=== PATIENT | male | born 1960 | race African-American/Black ===

== ENCOUNTER 2016-08-15 09:53 | Inpatient (IN) | payer OTHER ==
[2016-08-15 10:19] VITALS: BMI 28.1
--- NOTE | 2016-08-15 12:45 | HP ---
CIWA Score - CIWA Score Nausea/Vomitin Muscle Tremors: 3 Anxiety: 3 Agitation: 3 Paroxysmal Sweats: 2 Orientation: 0-Oriented Tacttile Disturbances: 2-Mild Itch/Numbness/Burn Auditory Disturbances: 2-Mild Harshness/Frighten Visual Disturbances: 2-Mild Sensitivity Headache: 2-Mild CIWA-Ar Total Score: 22 Admission ROS BHS - HPI Chief Complaint: i need help to stop drinking alcohol and cociane Allergies/Adverse Reactions: Allergies Allergy/AdvReac Type Severity Reaction Status Date / Time No Known Allergies Allergy Verified 08/15/16 11:11 History of Present Illness: this 56 years old male with alcohol and cocaine dependence,withdrawal symptom, last detox 04/29 [facility] hiv since 1999 weight loss longest period sobriety 3 months Exam Limitations: No Limitations - Ebola screening Have you traveled outside of the country in the last 21 days: No (N) Have you had contact with anyone from an Ebola affected area: No Have you been sick,other than usual withdrawal symptoms: No Do you have a fever: No - Review of Systems Constitutional: Loss of Appetite, Malaise, Night Sweats, Changes in sleep, Weakness, Unexplained wgt Loss EENT: reports: Nose Congestion Respiratory: reports: No Symptoms reported Cardiac: reports: No Symptoms Reported GI: reports: Diarrhea, Nausea, Vomiting, Abdominal cramping : reports: No Symptoms Reported Musculoskeletal: reports: Back Pain, Muscle Pain Integumentary: reports: Dryness Neuro: reports: Headache, Tremors Endocrine: reports: No Symptoms Reported Hematology: reports: Other (hiv) Psychiatric: reports: No Sypmtoms Reported Patient History - Patient Medical History Hx Anemia: No Hx Asthma: No Hx Chronic Obstructive Pulmonary Disease (COPD): No Hx Cancer: No Hx Cardiac Disorders: No Hx Hypertension: No Hx Hypercholesterolemia: No Hx Pacemaker: No HX Cerebrovascular Accident: No Hx Seizures: No Hx Dementia: No Hx Diabetes: No Hx Gastrointestinal Disorders: No Hx Liver Disease: No Hx Genitourinary Disorders: No Hx Sexually Transmitted Disorders: No Hx Renal Disease (ESRD): No Hx Thyroid Disease: No Hx Human Immunodeficiency Virus (HIV): Yes (since 1999) Hx Hepatitis C: No Hx Depression: No Hx Suicide Attempt: No Hx Bipolar Disorder: No Hx Schizophrenia: No Other Medical History: no suicidal,no homicidal - Patient Surgical History Past Surgical History: No Hx Neurologic Surgery: No Hx Cataract Extraction: No Hx Cardiac Surgery: No Hx Lung Surgery: No Hx Breast Surgery: No Hx Breast Biopsy: No Hx Abdominal Surgery: No Hx Appendectomy: No Hx Cholecystectomy: No Hx Genitourinary Surgery: No Hx Section: No Hx Orthopedic Surgery: No Anesthesia Reaction: No - PPD History Previous Implant?: Yes Documented Results: Negative w/o proof Implanted On Prior [facility] Admission?: No PPD to be Administered?: Yes - Smoking Cessation Smoking history: Never smoked Have you smoked in the past 12 months: No Aproximately how many cigarettes per day: 0 Cigars Per Day: 0 Hx Chewing Tobacco Use: No - Substance & Tx. History Hx Alcohol Use: Yes Hx Substance Use: Yes Substance Use Type: Alcohol, Cocaine, Marijuana Hx Substance Use Treatment: Yes ([facility] in 03/29) - Substances Abused Alcohol Route: Oral Frequency: Daily Amount used: 1 pint of Gin Age of first use: 20 Date of Last Use: 08/15/16 Cocaine Route: Inhalation Frequency: 1-3 times last 30 days Amount used: $300 Age of first use: 22 Date of Last Use: 08/13/16 Marijuana/Hashish Route: Smoking Frequency: Daily Amount used: $25 Age of first use: 17 Date of Last Use: 08/12/16 Family Disease History - Family Disease History Family History: Denies Admission Physical Exam [facility] - Vital Signs Vital Signs: Vital Signs - 24 hr 08/15/16 10:16 Temperature 96.2 F L Pulse Rate 82 Respiratory 20 Rate Blood Pressure 147/79 - Physical General Appearance: Yes: Moderate Distress, Tremorous, Irritable, Sweating, Anxious HEENTM: Yes: Nasal Congestion Respiratory: Yes: Lungs Clear Neck: Yes: Within Normal Limits Breast: Yes: Within Normal Limits Cardiology: Yes: Within Normal Limits, Regular Rhythm, Regular Rate, S1, S2 Abdominal: Yes: Within Normal Limits, Normal Bowel Sounds, Non Tender, Flat, Soft Genitourinary: Yes: Within Normal Limits Back: Yes: Muscle Spasm Extremities: Yes: Tremors 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 intact, Fully Oriented, Alert, Motor Strength 5/5 Integumentary: Yes: Dry Lymphatic: Yes: Within Normal Limits - Diagnostic (1) Alcohol dependence with uncomplicated withdrawal Current Visit: Yes Status: Acute (2) Cocaine dependence Current Visit: Yes Status: Acute (3) Cannabis dependence Current Visit: Yes Status: Acute (4) Weight loss Current Visit: Yes Status: Acute (5) HIV (human immunodeficiency virus infection) Current Visit: Yes Status: Acute Cleared for Admission BHS - Detox or Rehab [facility] Level of Care: Medically Managed Detox Regimen/Protocol: Librium BHS Breath Alcohol Content Breath Alcohol Content: 0 Urine Drug Screen - Results Drug Screen Negative: No Urine Drug Screen Results: ORAL-Cocaine
[2016-08-15] MEDS ORDERED: chlordiazePOXIDE HCL 25 MG CAPSULE PO PRN (12:53)
[2016-08-15] MEDS ORDERED: P-EPHED 60MG/TRIPROLIDI 2.5MG TABLET PO PRN (12:53)
[2016-08-15] MEDS ORDERED: IBUPROFEN 400 MG TABLET (FP) PO PRN (12:53)
[2016-08-15] MEDS ORDERED: hydrOXYzine PAMOATE 50 MG CAPSULE (FP) PO PRN (12:53)
[2016-08-15] MEDS ORDERED: diphenhydrAMINE HCL 50 MG CAPSULE PO PRN (12:53)
[2016-08-15] MEDS ORDERED: LOPERAMIDE HCL 2 MG CAPSULE PO PRN (12:53)
[2016-08-15] MEDS ORDERED: ACETAMINOPHEN 325 MG TABLET (FP) PO PRN (12:53)
[2016-08-15] MEDS ORDERED: guaiFENesin/D-METHORPHAN HB 10 ML UNIT-DOSE CUPS PO PRN (12:53)
[2016-08-15] MEDS ORDERED: MAGNESIUM HYDROX 2400MG/30ML ORAL SUSPENSION 30 ML CUP PO PRN (12:53)
[2016-08-15] MEDS ORDERED: MAG HYDROX/AL HYDROX/SIMETH 30 ML UNIT-DOSE CUP PO PRN (12:53)
[2016-08-15] MEDS ORDERED: MENTHOL/PHENOL 1 EACH UD MM PRN (12:53)
[2016-08-15] MEDS ORDERED: MAGNESIUM CITRATE 300 ML BOTTLE PO PRN (12:53)
[2016-08-15] MEDS ORDERED: chlordiazePOXIDE HCL 25 MG CAPSULE PO ONE (13:15)
[2016-08-15] MEDS: chlordiazePOXIDE HCL 25 MG CAPSULE PO SCH ×2 (18:04→22:45)
[2016-08-15] MEDS: THIAMINE HCL 100 MG TABLET (FP) PO SCH (22:45)
[2016-08-15 22:51] LABS: URINE APPEARANCE CLEAR; URINE BILIRUBIN NEGATIVE (NEGATIVE); URINE COLOR LTYELLOW; URINE GLUCOSE (UA) NEGATIVE (NEGATIVE); URINE KETONE NEGATIVE (NEGATIVE); URINE LEUK ESTERASE NEGATIVE (NEGATIVE); URINE NITRITE NEGATIVE (NEGATIVE); URINE PROTEIN NEGATIVE (NEGATIVE); URINE UROBILINOGEN NEGATIVE E.U./dl (0.2-1.0)
[2016-08-15 22:57] LABS: URINE BLOOD 2+ (NEGATIVE)
[2016-08-15 23:03] LABS: URINE MUCUS RARE; URINE RBC <1 /hpf (0-3); URINE WBC 1 /hpf (3-5)
[2016-08-16] MEDS: chlordiazePOXIDE HCL 25 MG CAPSULE PO SCH ×4 (05:33→23:06)
[2016-08-16] MEDS ORDERED: cloNIDine HCL 0.1 MG TABLET PO ONE (07:17)
--- NOTE | 2016-08-16 07:19 | PN ---
BHS Progress Note Note: Last Vital Signs Temp Pulse Resp BP Pulse Ox 97.9 F 78 18 143/90 08/16/16 06:38 08/16/16 06:38 08/16/16 06:38 08/16/16 06:38 BP ELEVATED ONE TIME OF CLONIDINE 0.1MG ORDERED WILL CONTINUE TO MONITOR
[2016-08-16] MEDS: PRENATAL VITAMINS W/ FOLIC ACID TABLET (FP) PO SCH (10:16)
[2016-08-16] MEDS: ASCORBIC ACID 500 MG TABLET (FP) PO SCH (10:18)
--- NOTE | 2016-08-16 10:25 | PN ---
S CIWA - CIWA Score Nausea/Vomitin Muscle Tremors: 3 Anxiety: 3 Agitation: 3 Paroxysmal Sweats: 1-Minimal Palms Moist Orientation: 0-Oriented Tacttile Disturbances: 1-Very Mild Itch/Numbness Auditory Disturbances: 1-Very Mild Visual Disturbances: 1-Very Mild Sensitivity Headache: 2-Mild CIWA-Ar Total Score: 18 BHS Progress Note (SOAP) Subjective: ALERT,IRRITABLE,ANXIOUS,INTERRUPTED SLEEP,TREMOR Objective: 08/16/16 10:23 Vital Signs Temperature 97.9 F 08/16/16 06:38 Pulse Rate 78 08/16/16 06:38 Respiratory Rate 18 08/16/16 06:38 Blood Pressure 143/90 08/16/16 06:38 O2 Sat by Pulse Oximetry (%) EKG NSR NO CHEST PAIN,NO SOB,NO DIZZINESS Laboratory Last Values Urine Color Ltyellow 08/15/16 22:40 Urine Appearance Clear 08/15/16 22:40 Urine pH 5.0 (5.0-8.0) 08/15/16 22:40 Ur Specific [place] 1.019 (1.001-1.035) 08/15/16 22:40 Urine Protein Negative (NEGATIVE) 08/15/16 22:40 Urine Glucose (UA) Negative (NEGATIVE) 08/15/16 22:40 Urine Ketones Negative (NEGATIVE) 08/15/16 22:40 Urine Blood 2+ (NEGATIVE) H 08/15/16 22:40 Urine Nitrite Negative (NEGATIVE) 08/15/16 22:40 Urine Bilirubin Negative (NEGATIVE) 08/15/16 22:40 Urine Urobilinogen Negative E.U./dl (0.2-1.0) 08/15/16 22:40 Ur Leukocyte Esterase Negative (NEGATIVE) 08/15/16 22:40 Urine RBC <1 /hpf (0-3) 08/15/16 22:40 Urine WBC 1 /hpf (3-5) 08/15/16 22:40 Ur Epithelial Cells Rare /hpf (FEW) 08/15/16 22:40 Urine Mucus Rare 08/15/16 22:40 LABS PENDING Assessment: 08/16/16 10:24 WITHDRAWAL SYMPTOM Plan: CONTINUE DETOX
[2016-08-16 11:01] LABS: MCH 31.9 pg (25.7-33.7); MCHC 34.1 g/dl (32.0-35.9); MEAN CELL VOLUME 93.6 fl (80-96); MEAN PLT VOLUME 8.4 fl (7.5-11.1); PLATELET COUNT 227 K/MM3 (134-434); RDW 12.7 % (11.9-15.9); WHITE BLOOD COUNT 3.7 K/mm3 (4.0-10.0)
[2016-08-16 11:12] LABS: CALCIUM 9.1 mg/dL (8.5-10.1)
[2016-08-16 11:18] LABS: ALBUMIN 3.1 g/dl (3.4-5.0); ALK PHOS 67 U/L (45-117); ANION GAP 5 (8-16); BILIRUBIN,TOTAL 0.2 mg/dL (0.2-1.0); CO2 29 mmol/L (21-32); CREATININE 0.9 mg/dL (0.7-1.3); GLUCOSE,RANDOM 96 mg/dL (74-106); SGOT/AST 15 U/L (15-37); SGPT/ALT 24 U/L (12-78); TOT PROT 6.5 g/dl (6.4-8.2)
[2016-08-16] MEDS: THIAMINE HCL 100 MG TABLET (FP) PO SCH (23:06)
[2016-08-17] MEDS: chlordiazePOXIDE HCL 25 MG CAPSULE PO SCH ×2 (07:25→10:12)
--- NOTE | 2016-08-17 10:09 | PN ---
S CIWA - CIWA Score Nausea/Vomitin Muscle Tremors: 3 Anxiety: 2 Agitation: 2 Paroxysmal Sweats: 1-Minimal Palms Moist Orientation: 0-Oriented Tacttile Disturbances: 1-Very Mild Itch/Numbness Auditory Disturbances: 1-Very Mild Visual Disturbances: 1-Very Mild Sensitivity Headache: 2-Mild CIWA-Ar Total Score: 16 S Progress Note (SOAP) Subjective: ALERT,IRRITABLE,ANXIOUS,INTERRUPTED SLEEP,TREMOR Objective: 08/17/16 10:08 Vital Signs Temperature 97.4 F L 08/17/16 09:35 Pulse Rate 98 H 08/17/16 09:35 Respiratory Rate 20 08/17/16 09:35 Blood Pressure 146/91 08/17/16 09:35 O2 Sat by Pulse Oximetry (%) Laboratory Last Values WBC 3.7 K/mm3 (4.0-10.0) L 08/16/16 06:30 RBC 3.79 M/mm3 (4.00-5.60) L 08/16/16 06:30 Hgb 12.1 GM/dL (11.7-16.9) 08/16/16 06:30 Hct 35.4 % (35.4-49) 08/16/16 06:30 MCV 93.6 fl (80-96) 08/16/16 06:30 MCHC 34.1 g/dl (32.0-35.9) 08/16/16 06:30 RDW 12.7 % (11.9-15.9) 08/16/16 06:30 Plt Count 227 K/MM3 (134-434) 08/16/16 06:30 MPV 8.4 fl (7.5-11.1) 08/16/16 06:30 Sodium 143 mmol/L (136-145) 08/16/16 06:30 Potassium 3.7 mmol/L (3.5-5.1) 08/16/16 06:30 Chloride 109 mmol/L (98-107) H 08/16/16 06:30 Carbon Dioxide 29 mmol/L (21-32) 08/16/16 06:30 Anion Gap 5 (8-16) L 08/16/16 06:30 BUN 16 mg/dL (7-18) 08/16/16 06:30 Creatinine 0.9 mg/dL (0.7-1.3) 08/16/16 06:30 Creat Clearance w eGFR > 60 (>60) 08/16/16 06:30 Random Glucose 96 mg/dL (74-106) 08/16/16 06:30 Calcium 9.1 mg/dL (8.5-10.1) 08/16/16 06:30 Total Bilirubin 0.2 mg/dL (0.2-1.0) 08/16/16 06:30 AST 15 U/L (15-37) 08/16/16 06:30 ALT 24 U/L (12-78) 08/16/16 06:30 Alkaline Phosphatase 67 U/L (45-117) 08/16/16 06:30 Total Protein 6.5 g/dl (6.4-8.2) 08/16/16 06:30 Albumin 3.1 g/dl (3.4-5.0) L 08/16/16 06:30 Urine Color Ltyellow 08/15/16 22:40 Urine Appearance Clear 08/15/16 22:40 Urine pH 5.0 (5.0-8.0) 08/15/16 22:40 Ur Specific [place] 1.019 (1.001-1.035) 08/15/16 22:40 Urine Protein Negative (NEGATIVE) 08/15/16 22:40 Urine Glucose (UA) Negative (NEGATIVE) 08/15/16 22:40 Urine Ketones Negative (NEGATIVE) 08/15/16 22:40 Urine Blood 2+ (NEGATIVE) H 08/15/16 22:40 Urine Nitrite Negative (NEGATIVE) 08/15/16 22:40 Urine Bilirubin Negative (NEGATIVE) 08/15/16 22:40 Urine Urobilinogen Negative E.U./dl (0.2-1.0) 08/15/16 22:40 Ur Leukocyte Esterase Negative (NEGATIVE) 08/15/16 22:40 Urine RBC <1 /hpf (0-3) 08/15/16 22:40 Urine WBC 1 /hpf (3-5) 08/15/16 22:40 Ur Epithelial Cells Rare /hpf (FEW) 08/15/16 22:40 Urine Mucus Rare 08/15/16 22:40 RPR Titer Nonreactive (NONREACTIVE) 08/16/16 06:30 Assessment: 08/17/16 10:09 WITHDRAWAL SYMPTOM Plan: CONTINUE DETOX
[2016-08-17] MEDS: PRENATAL VITAMINS W/ FOLIC ACID TABLET (FP) PO SCH (10:12)
[2016-08-17] MEDS: ASCORBIC ACID 500 MG TABLET (FP) PO SCH (10:12)
[2016-08-17] MEDS: AMMONIUM LACTATE 12% LOTION 225 GM BOTTLE TP SCH ×2 (12:11→22:34)
[2016-08-17] MEDS: TOLNAFTATE 1% CREAM 15 GM TUBE TP SCH ×2 (12:11→22:35)
[2016-08-17] MEDS: chlordiazePOXIDE 5 MG CAPSULE PO SCH ×2 (17:20→22:35)
[2016-08-17] MEDS: THIAMINE HCL 100 MG TABLET (FP) PO SCH (22:35)
[2016-08-18] MEDS: chlordiazePOXIDE 5 MG CAPSULE PO SCH ×2 (06:00→10:27)
--- NOTE | 2016-08-18 10:06 | PN ---
BHS Progress Note (SOAP) Subjective: ALERT,INTERRUPTED SLEEP,ANXIOUS Objective: 08/18/16 10:04 Vital Signs Temperature 98.7 F 08/18/16 09:44 Pulse Rate 92 H 08/18/16 09:44 Respiratory Rate 18 08/18/16 09:44 Blood Pressure 132/83 08/18/16 09:44 O2 Sat by Pulse Oximetry (%) Assessment: 08/18/16 10:04 WITHDRAWAL SYMPTOM Plan: CONTINUE DETOX
[2016-08-18] MEDS: TOLNAFTATE 1% CREAM 15 GM TUBE TP SCH ×2 (10:27→22:42)
[2016-08-18] MEDS: PRENATAL VITAMINS W/ FOLIC ACID TABLET (FP) PO SCH (10:27)
[2016-08-18] MEDS: ASCORBIC ACID 500 MG TABLET (FP) PO SCH (10:28)
[2016-08-18] MEDS: AMMONIUM LACTATE 12% LOTION 225 GM BOTTLE TP SCH ×2 (10:28→22:42)
[2016-08-18] MEDS: chlordiazePOXIDE HCL 10 MG CAPSULE PO SCH ×2 (17:21→22:42)
[2016-08-18] MEDS: THIAMINE HCL 100 MG TABLET (FP) PO SCH (22:43)
[2016-08-19] MEDS: chlordiazePOXIDE HCL 10 MG CAPSULE PO SCH ×2 (06:03→10:39)
--- NOTE | 2016-08-19 10:15 | PN ---
S Progress Note (SOAP) Subjective: alert,interrupted sleep,irritable Objective: 08/19/16 10:14 Vital Signs Temperature 96.6 F L 08/19/16 09:53 Pulse Rate 104 H 08/19/16 09:53 Respiratory Rate 20 08/19/16 09:53 Blood Pressure 159/90 08/19/16 09:53 O2 Sat by Pulse Oximetry (%) Assessment: 08/19/16 10:14 withdrawal symptom Plan: continue detox,discharge in am
[2016-08-19] MEDS: AMMONIUM LACTATE 12% LOTION 225 GM BOTTLE TP SCH ×2 (10:39→22:42)
[2016-08-19] MEDS: ASCORBIC ACID 500 MG TABLET (FP) PO SCH (10:39)
[2016-08-19] MEDS: TOLNAFTATE 1% CREAM 15 GM TUBE TP SCH ×2 (10:39→22:42)
[2016-08-19] MEDS: PRENATAL VITAMINS W/ FOLIC ACID TABLET (FP) PO SCH (10:39)
[2016-08-19] MEDS: THIAMINE HCL 100 MG TABLET (FP) PO SCH (22:43)
[2016-08-20 06:25] VITALS: BP 145/94; PULSE 87; TEMP 98.1
--- NOTE | 2016-08-20 10:59 | DS ---
[facility] Detox Discharge Summary Admission Date: 08/15/16 Discharge Date: 08/20/16 - History Present History: Alcohol Dependence, Cannabis Dependence, Cocaine Dependence Pertinent Past History: HIV - Physical Exam Results Vital Signs: Vital Signs Temperature 98.1 F 08/20/16 06:25 Pulse Rate 87 08/20/16 06:25 Respiratory Rate 16 08/20/16 06:25 Blood Pressure 145/94 08/20/16 06:25 O2 Sat by Pulse Oximetry (%) Pertinent Admission Physical Exam Findings: withdrawal symptoms Laboratory Last Values WBC 3.7 K/mm3 (4.0-10.0) L 08/16/16 06:30 RBC 3.79 M/mm3 (4.00-5.60) L 08/16/16 06:30 Hgb 12.1 GM/dL (11.7-16.9) 08/16/16 06:30 Hct 35.4 % (35.4-49) 08/16/16 06:30 MCV 93.6 fl (80-96) 08/16/16 06:30 MCHC 34.1 g/dl (32.0-35.9) 08/16/16 06:30 RDW 12.7 % (11.9-15.9) 08/16/16 06:30 Plt Count 227 K/MM3 (134-434) 08/16/16 06:30 MPV 8.4 fl (7.5-11.1) 08/16/16 06:30 Sodium 143 mmol/L (136-145) 08/16/16 06:30 Potassium 3.7 mmol/L (3.5-5.1) 08/16/16 06:30 Chloride 109 mmol/L (98-107) H 08/16/16 06:30 Carbon Dioxide 29 mmol/L (21-32) 08/16/16 06:30 Anion Gap 5 (8-16) L 08/16/16 06:30 BUN 16 mg/dL (7-18) 08/16/16 06:30 Creatinine 0.9 mg/dL (0.7-1.3) 08/16/16 06:30 Creat Clearance w eGFR > 60 (>60) 08/16/16 06:30 Random Glucose 96 mg/dL (74-106) 08/16/16 06:30 Calcium 9.1 mg/dL (8.5-10.1) 08/16/16 06:30 Total Bilirubin 0.2 mg/dL (0.2-1.0) 08/16/16 06:30 AST 15 U/L (15-37) 08/16/16 06:30 ALT 24 U/L (12-78) 08/16/16 06:30 Alkaline Phosphatase 67 U/L (45-117) 08/16/16 06:30 Total Protein 6.5 g/dl (6.4-8.2) 08/16/16 06:30 Albumin 3.1 g/dl (3.4-5.0) L 08/16/16 06:30 Urine Color Ltyellow 08/15/16 22:40 Urine Appearance Clear 08/15/16 22:40 Urine pH 5.0 (5.0-8.0) 08/15/16 22:40 Ur Specific [place] 1.019 (1.001-1.035) 08/15/16 22:40 Urine Protein Negative (NEGATIVE) 08/15/16 22:40 Urine Glucose (UA) Negative (NEGATIVE) 08/15/16 22:40 Urine Ketones Negative (NEGATIVE) 08/15/16 22:40 Urine Blood 2+ (NEGATIVE) H 08/15/16 22:40 Urine Nitrite Negative (NEGATIVE) 08/15/16 22:40 Urine Bilirubin Negative (NEGATIVE) 08/15/16 22:40 Urine Urobilinogen Negative E.U./dl (0.2-1.0) 08/15/16 22:40 Ur Leukocyte Esterase Negative (NEGATIVE) 08/15/16 22:40 Urine RBC <1 /hpf (0-3) 08/15/16 22:40 Urine WBC 1 /hpf (3-5) 08/15/16 22:40 Ur Epithelial Cells Rare /hpf (FEW) 08/15/16 22:40 Urine Mucus Rare 08/15/16 22:40 RPR Titer Nonreactive (NONREACTIVE) 08/16/16 06:30 labs noted - Medication Discharge Medications: Ambulatory Orders NK [No Known Home Medication] 08/15/16 - Diagnosis (1) Alcohol dependence with uncomplicated withdrawal Status: Acute (2) Cannabis dependence Status: Acute (3) Cocaine dependence Status: Acute Qualifiers: Substance use status: uncomplicated Qualified Code(s): F14.20 - Cocaine dependence, uncomplicated (4) HIV (human immunodeficiency virus infection) Status: Chronic (5) Weight loss Status: Acute - AMA Did Patient Leave Against Medical Advice: No
== END 2016-08-20 09:20 | disposition home or self-care (01) | DRG 897 ==
LOC: YASAS 09:53 → Y3N 12:15
PROVIDERS: ADMIT Internal Medicine; ATTEND Internal Medicine
PROC: HZ2ZZZZ Detoxification Services for Substance Abuse Treatment (ICD-10-PCS; principal; 2016-08-15)
DX: F10.230 Alcohol dependence with withdrawal, uncomplicated (principal); F14.20 Cocaine dependence, uncomplicated; F12.20 Cannabis dependence, uncomplicated; R03.0 Elevated blood-pressure reading, without diagnosis of hypertension; Z21 Asymptomatic human immunodeficiency virus [HIV] infection status; Z87.898 Personal history of other specified conditions
CPT/HCPCS: 36415; 80053; 81003; 81015; 85027; 86593; 93005; 93010

== ENCOUNTER 2017-05-29 13:48 | Inpatient (IN) | payer OTHER ==
[2017-05-29 16:20] VITALS: BMI 26.4
--- NOTE | 2017-05-29 18:52 | HP ---
CIWA Score - CIWA Score Nausea/Vomitin-Mild Nausea/No Vomiting Muscle Tremors: 4-Moderate,w/Arms Extend Anxiety: 4-Mod. Anxious/Guarded Agitation: 4-Moderately Restless Paroxysmal Sweats: 1-Minimal Palms Moist Orientation: 1-Uncertain about Date Tacttile Disturbances: 0-None Auditory Disturbances: 0-None Visual Disturbances: 0-None Headache: 0-None Present CIWA-Ar Total Score: 15 Admission ROS BHS - HPI Chief Complaint: WITHDRAWAL SX Allergies/Adverse Reactions: Allergies Allergy/AdvReac Type Severity Reaction Status Date / Time No Known Allergies Allergy Verified 05/29/17 18:01 History of Present Illness: 57 YEARS OLD MALE WITH LONG HISTORY OF ALCOHOL COCAINE DEPENDENCE HAS HIV, PATIENT DOES NOT BRING HIS MEDICATION, DENIES MENTAL ILLNESS IS ADMITTED TO DETOX Exam Limitations: No Limitations - Ebola screening Have you traveled outside of the country in the last 21 days: No Have you had contact with anyone from an Ebola affected area: No Have you been sick,other than usual withdrawal symptoms: No Do you have a fever: No - Review of Systems Constitutional: Changes in sleep, Weight Stable EENT: reports: No Symptoms Reported Respiratory: reports: No Symptoms reported Cardiac: reports: No Symptoms Reported GI: reports: Nausea, Poor Fluid Intake, Abdominal cramping : reports: No Symptoms Reported Musculoskeletal: reports: Muscle Pain (UPPER TORSAL MUSCLE ACHE) Integumentary: reports: No Symptoms Reported Neuro: reports: Tremors Endocrine: reports: No Symptoms Reported Hematology: reports: No Symptoms Reported Psychiatric: reports: Judgement Intact, Mood/Affect Appropiate Other Systems: Reviewed and Negative Patient History - Patient Medical History Hx Anemia: No Hx Asthma: No Hx Chronic Obstructive Pulmonary Disease (COPD): No Hx Cancer: No Hx Cardiac Disorders: No Hx Congestive Heart Failure: No Hx Hypertension: No Hx Hypercholesterolemia: No Hx Pacemaker: No HX Cerebrovascular Accident: No Hx Seizures: No Hx Dementia: No Hx Diabetes: No Hx Gastrointestinal Disorders: No Hx Liver Disease: No Hx Genitourinary Disorders: No Hx Sexually Transmitted Disorders: No Hx Renal Disease (ESRD): No Hx Thyroid Disease: No Hx Human Immunodeficiency Virus (HIV): Yes (since 1999) Hx Hepatitis C: No Hx Depression: No Hx Suicide Attempt: No Hx Bipolar Disorder: No Hx Schizophrenia: No - Patient Surgical History Past Surgical History: No Hx Neurologic Surgery: No Hx Cataract Extraction: No Hx Cardiac Surgery: No Hx Lung Surgery: No Hx Breast Surgery: No Hx Breast Biopsy: No Hx Abdominal Surgery: No Hx Appendectomy: No Hx Cholecystectomy: No Hx Genitourinary Surgery: No Hx Orthopedic Surgery: No - PPD History Previous Implant?: Yes Documented Results: Negative w/proof Implanted On Prior [facility] Admission?: Yes Date: 08/17/16 Results: 0 mm PPD to be Administered?: No - Smoking Cessation Smoking history: Never smoked Have you smoked in the past 12 months: No Aproximately how many cigarettes per day: 0 Cigars Per Day: 0 Hx Chewing Tobacco Use: No Initiated information on smoking cessation: No - Substance & Tx. History Hx Alcohol Use: Yes Hx Substance Use: Yes Substance Use Type: Alcohol, Cocaine Hx Substance Use Treatment: Yes (08/15-08/20/16 [facility] - Substances Abused Alcohol Route: Oral Frequency: Daily Amount used: 1 [address] Age of first use: 22 Date of Last Use: 05/29/17 Cocaine Route: Smoking Frequency: Daily Amount used: $200 Age of first use: 20 Date of Last Use: 05/27/17 Family Disease History - Family Disease History Family Disease History: Other: Father (), Mother (), Brother ( NO CONTACT), Sister (NO CONTACT) Admission Physical Exam S - Vital Signs Vital Signs: Vital Signs - 24 hr 05/29/17 16:18 Temperature 96 F L Pulse Rate 71 Respiratory 20 Rate Blood Pressure 149/88 - Physical General Appearance: Yes: Nourished, Appropriately Dressed, Mild Distress, Tremorous, Irritable, Sweating, Anxious HEENTM: Yes: Hearing grossly Normal, Normal ENT Inspection, Normocephalic, Normal Voice Respiratory: Yes: Chest Non-Tender, Lungs Clear, Normal Breath Sounds, No Respiratory Distress, No Accessory Muscle Use Neck: Yes: Supple, Trachea in good position Breast: Yes: Breasts Symetrical Cardiology: Yes: Regular Rhythm, Regular Rate, S1, S2 Abdominal: Yes: Non Tender, Soft, Increased Bowel Sounds Genitourinary: Yes: Within Normal Limits Back: Yes: Normal Inspection Musculoskeletal: Yes: full range of Motion, Gait Steady Extremities: Yes: Normal Inspection, Normal Range of Motion, Non-Tender, Tremors Neurological: Yes: Alert, Motor Strength 5/5, Normal Mood/Affect, Normal Response Integumentary: Yes: Warm Lymphatic: Yes: Within Normal Limits - Diagnostic (1) Alcohol dependence with uncomplicated withdrawal Current Visit: Yes Status: Acute (2) Weight loss Status: Acute (3) HIV (human immunodeficiency virus infection) Current Visit: Yes Status: Chronic Comment: JANA Cleared for Admission S - Detox or Rehab [facility] Level of Care: Medically Managed Detox Regimen/Protocol: Librium S Breath Alcohol Content Breath Alcohol Content: 0 Urine Drug Screen - Results Drug Screen Negative: No Urine Drug Screen Results: ORAL-Cocaine
[2017-05-29] MEDS ORDERED: MAGNESIUM CITRATE 300 ML BOTTLE PO PRN (19:13)
[2017-05-29] MEDS ORDERED: MAG HYDROX/AL HYDROX/SIMETH 30 ML UNIT-DOSE CUP PO PRN (19:13)
[2017-05-29] MEDS ORDERED: MAGNESIUM HYDROX 2400MG/30ML ORAL SUSPENSION 30 ML CUP PO PRN (19:13)
[2017-05-29] MEDS ORDERED: IBUPROFEN 400 MG TABLET (FP) PO PRN (19:13)
[2017-05-29] MEDS ORDERED: MENTHOL/PHENOL 1 EACH UD MM PRN (19:13)
[2017-05-29] MEDS ORDERED: ACETAMINOPHEN 325 MG TABLET (FP) PO PRN (19:13)
[2017-05-29] MEDS ORDERED: LOPERAMIDE HCL 2 MG CAPSULE PO PRN (19:13)
[2017-05-29] MEDS ORDERED: guaiFENesin/D-METHORPHAN HB 10 ML UNIT-DOSE CUPS PO PRN (19:13)
[2017-05-29] MEDS ORDERED: P-EPHED 60MG/TRIPROLIDI 2.5MG TABLET PO PRN (19:13)
[2017-05-29] MEDS: chlordiazePOXIDE HCL 25 MG CAPSULE PO PRN (20:41)
[2017-05-29] MEDS: SULFAMETHOXAZOLE/TRIMETHOPRIM 800MG/160MG D.S. TABLET PO SCH (20:41)
[2017-05-29] MEDS ORDERED: chlordiazePOXIDE HCL 25 MG CAPSULE ONE (21:00)
[2017-05-29] MEDS: THIAMINE HCL 100 MG TABLET (FP) PO SCH (22:16)
[2017-05-29] MEDS: chlordiazePOXIDE HCL 25 MG CAPSULE PO SCH (22:17)
[2017-05-30 01:07] LABS: URINE APPEARANCE CLEAR; URINE BILIRUBIN NEGATIVE (NEGATIVE); URINE BLOOD NEGATIVE (NEGATIVE); URINE COLOR STRAW; URINE GLUCOSE (UA) NEGATIVE (NEGATIVE); URINE KETONE NEGATIVE (NEGATIVE); URINE NITRITE NEGATIVE (NEGATIVE); URINE PROTEIN NEGATIVE (NEGATIVE); URINE UROBILINOGEN NEGATIVE mg/dL (0.2-1.0)
[2017-05-30] MEDS: chlordiazePOXIDE HCL 25 MG CAPSULE PO SCH ×4 (05:25→22:38)
[2017-05-30 09:11] LABS: URINE LEUK ESTERASE Negative (NEGATIVE)
[2017-05-30 09:50] LABS: MCH 29.8 pg (25.7-33.7); MCHC 33.5 g/dl (32.0-35.9); MEAN PLT VOLUME 8.5 fl (7.5-11.1); PLATELET COUNT 246 K/MM3 (134-434); WHITE BLOOD COUNT 2.8 K/mm3 (4.0-10.0)
[2017-05-30] MEDS: SULFAMETHOXAZOLE/TRIMETHOPRIM 800MG/160MG D.S. TABLET PO SCH (10:20)
[2017-05-30] MEDS: PRENATAL VITAMINS W/ FOLIC ACID TABLET (FP) PO SCH (10:20)
--- NOTE | 2017-05-30 10:41 | PN ---
S CIWA - CIWA Score Nausea/Vomitin Muscle Tremors: 3 Anxiety: 2 Agitation: 3 Paroxysmal Sweats: 1-Minimal Palms Moist Orientation: 0-Oriented Tacttile Disturbances: 1-Very Mild Itch/Numbness Auditory Disturbances: 1-Very Mild Visual Disturbances: 0-None Headache: 2-Mild CIWA-Ar Total Score: 16 BHS Progress Note (SOAP) Subjective: alert,irritable,anxious,interrupted sleep,tremor Objective: 05/30/17 10:39 Vital Signs Temperature 95.6 F L 05/30/17 10:00 Pulse Rate 84 05/30/17 10:00 Respiratory Rate 18 05/30/17 10:00 Blood Pressure 151/82 05/30/17 10:00 O2 Sat by Pulse Oximetry (%) ekg nsr,normal ecg Laboratory Last Values WBC 2.8 K/mm3 (4.0-10.0) L 05/30/17 07:00 RBC 4.20 M/mm3 (4.00-5.60) 05/30/17 07:00 Hgb 12.6 GM/dL (11.7-16.9) 05/30/17 07:00 Hct 37.4 % (35.4-49) 05/30/17 07:00 MCV 89.0 fl (80-96) 05/30/17 07:00 MCH 29.8 pg (25.7-33.7) 05/30/17 07:00 MCHC 33.5 g/dl (32.0-35.9) 05/30/17 07:00 RDW 14.0 % (11.9-15.9) D 05/30/17 07:00 Plt Count 246 K/MM3 (134-434) 05/30/17 07:00 MPV 8.5 fl (7.5-11.1) 05/30/17 07:00 Urine Color Straw 05/29/17 22:35 Urine Appearance Clear 05/29/17 22:35 Urine pH 5.0 (5.0-8.0) 05/29/17 22:35 Ur Specific [place] 1.010 (1.005-1.025) 05/29/17 22:35 Urine Protein Negative (NEGATIVE) 05/29/17 22:35 Urine Glucose (UA) Negative (NEGATIVE) 05/29/17 22:35 Urine Ketones Negative (NEGATIVE) 05/29/17 22:35 Urine Blood Negative (NEGATIVE) 05/29/17 22:35 Urine Nitrite Negative (NEGATIVE) 05/29/17 22:35 Urine Bilirubin Negative (NEGATIVE) 05/29/17 22:35 Urine Urobilinogen Negative mg/dL (0.2-1.0) 05/29/17 22:35 Ur Leukocyte Esterase Negative (NEGATIVE) 05/29/17 22:35 RPR Titer Nonreactive (NONREACTIVE) 05/30/17 07:00 labs pending Assessment: 05/30/17 10:40 withdrawal symptom Plan: continue detox
[2017-05-30 10:45] LABS: ALBUMIN 3.1 g/dl (3.4-5.0); ALK PHOS 77 U/L (45-117); ANION GAP 8 (8-16); BILIRUBIN,TOTAL 0.4 mg/dL (0.2-1.0); CO2 29 mmol/L (21-32); CREATININE 1.1 mg/dL (0.7-1.3); GLUCOSE,RANDOM 81 mg/dL (74-106); SGOT/AST 16 U/L (15-37); SGPT/ALT 21 U/L (12-78); TOT PROT 6.9 g/dl (6.4-8.2)
[2017-05-30] MEDS ORDERED: FLU VACCINE QUAD 60 MCG/0.5 ML (MDV 17-18) IM ONE (12:00)
[2017-05-30] MEDS: chlordiazePOXIDE HCL 25 MG CAPSULE PO PRN (19:10)
[2017-05-30] MEDS: THIAMINE HCL 100 MG TABLET (FP) PO SCH (22:37)
[2017-05-30] MEDS: diphenhydrAMINE HCL 50 MG CAPSULE PO PRN (22:38)
[2017-05-31] MEDS: chlordiazePOXIDE HCL 25 MG CAPSULE PO SCH ×3 (05:50→17:26)
[2017-05-31] MEDS: SULFAMETHOXAZOLE/TRIMETHOPRIM 800MG/160MG D.S. TABLET PO SCH (10:35)
[2017-05-31] MEDS: PRENATAL VITAMINS W/ FOLIC ACID TABLET (FP) PO SCH (10:35)
--- NOTE | 2017-05-31 11:14 | PN ---
S CIWA - CIWA Score Nausea/Vomitin Muscle Tremors: 3 Anxiety: 3 Agitation: 2 Paroxysmal Sweats: 1-Minimal Palms Moist Orientation: 0-Oriented Tacttile Disturbances: 1-Very Mild Itch/Numbness Auditory Disturbances: 1-Very Mild Visual Disturbances: 0-None Headache: 2-Mild CIWA-Ar Total Score: 16 BHS Progress Note (SOAP) Subjective: alert,irritable,tremor,interrupted sleep Objective: 05/31/17 11:11 Vital Signs Temperature 98.6 F 05/31/17 10:00 Pulse Rate 90 05/31/17 10:00 Respiratory Rate 20 05/31/17 10:00 Blood Pressure 141/92 05/31/17 10:00 O2 Sat by Pulse Oximetry (%) Laboratory Last Values WBC 2.8 K/mm3 (4.0-10.0) L 05/30/17 07:00 RBC 4.20 M/mm3 (4.00-5.60) 05/30/17 07:00 Hgb 12.6 GM/dL (11.7-16.9) 05/30/17 07:00 Hct 37.4 % (35.4-49) 05/30/17 07:00 MCV 89.0 fl (80-96) 05/30/17 07:00 MCH 29.8 pg (25.7-33.7) 05/30/17 07:00 MCHC 33.5 g/dl (32.0-35.9) 05/30/17 07:00 RDW 14.0 % (11.9-15.9) D 05/30/17 07:00 Plt Count 246 K/MM3 (134-434) 05/30/17 07:00 MPV 8.5 fl (7.5-11.1) 05/30/17 07:00 Sodium 143 mmol/L (136-145) 05/30/17 07:00 Potassium 4.0 mmol/L (3.5-5.1) 05/30/17 07:00 Chloride 106 mmol/L (98-107) 05/30/17 07:00 Carbon Dioxide 29 mmol/L (21-32) 05/30/17 07:00 Anion Gap 8 (8-16) 05/30/17 07:00 BUN 16 mg/dL (7-18) 05/30/17 07:00 Creatinine 1.1 mg/dL (0.7-1.3) D 05/30/17 07:00 Creat Clearance w eGFR > 60 (>60) 05/30/17 07:00 Random Glucose 81 mg/dL (74-106) 05/30/17 07:00 Calcium 9.0 mg/dL (8.5-10.1) 05/30/17 07:00 Total Bilirubin 0.4 mg/dL (0.2-1.0) D 05/30/17 07:00 AST 16 U/L (15-37) 05/30/17 07:00 ALT 21 U/L (12-78) 05/30/17 07:00 Alkaline Phosphatase 77 U/L (45-117) 05/30/17 07:00 Total Protein 6.9 g/dl (6.4-8.2) 05/30/17 07:00 Albumin 3.1 g/dl (3.4-5.0) L 05/30/17 07:00 Urine Color Straw 05/29/17 22:35 Urine Appearance Clear 05/29/17 22:35 Urine pH 5.0 (5.0-8.0) 05/29/17 22:35 Ur Specific [place] 1.010 (1.005-1.025) 05/29/17 22:35 Urine Protein Negative (NEGATIVE) 05/29/17 22:35 Urine Glucose (UA) Negative (NEGATIVE) 05/29/17 22:35 Urine Ketones Negative (NEGATIVE) 05/29/17 22:35 Urine Blood Negative (NEGATIVE) 05/29/17 22:35 Urine Nitrite Negative (NEGATIVE) 05/29/17 22:35 Urine Bilirubin Negative (NEGATIVE) 05/29/17 22:35 Urine Urobilinogen Negative mg/dL (0.2-1.0) 05/29/17 22:35 Ur Leukocyte Esterase Negative (NEGATIVE) 05/29/17 22:35 RPR Titer Nonreactive (NONREACTIVE) 05/30/17 07:00 Hepatitis C Antibody 0.1 s/co ratio (0.0-0.9) 05/29/17 07:00 Assessment: 05/31/17 11:13 withdrawal symptom Plan: continue detox
--- NOTE | 2017-05-31 12:00 | EKG ---
Test Reason : Blood Pressure : / mmHG Vent. Rate : 065 BPM Atrial Rate : 065 BPM P-R Int : 158 ms QRS Dur : 090 ms QT Int : 408 ms P-R-T Axes : 028 045 023 degrees QTc Int : 424 ms NORMAL SINUS RHYTHM NORMAL ECG NO PREVIOUS ECGS AVAILABLE Confirmed by ALLISON NIELSEN, TANYA ([id number]) on 05/31/2017 11:59:34 AM Referred By: GABRIELA APONTE Confirmed By:TANYA COOPER MD
[2017-05-31] MEDS: chlordiazePOXIDE 5 MG CAPSULE PO SCH (22:19)
[2017-05-31] MEDS: THIAMINE HCL 100 MG TABLET (FP) PO SCH (22:19)
[2017-05-31] MEDS: diphenhydrAMINE HCL 50 MG CAPSULE PO PRN (22:21)
[2017-06-01] MEDS: chlordiazePOXIDE 5 MG CAPSULE PO SCH ×3 (05:19→17:41)
--- NOTE | 2017-06-01 10:14 | PN ---
[facility] Progress Note (SOAP) Subjective: alert,irritable,anxious,interrupted sleep Objective: 06/01/17 10:13 Vital Signs Temperature 99.9 F H 06/01/17 09:47 Pulse Rate 88 06/01/17 09:47 Respiratory Rate 18 06/01/17 09:47 Blood Pressure 133/90 06/01/17 09:47 O2 Sat by Pulse Oximetry (%) Assessment: 06/01/17 10:13 withdrawal symptom 06/01/17 10:14 Plan: continue detox,discharge in am
[2017-06-01 10:42] LABS: MCH 29.6 pg (25.7-33.7); MCHC 33.4 g/dl (32.0-35.9); MEAN CELL VOLUME 88.7 fl (80-96); MEAN PLT VOLUME 8.5 fl (7.5-11.1); PLATELET COUNT 241 K/MM3 (134-434); RDW 14.3 % (11.9-15.9); WHITE BLOOD COUNT 3.4 K/mm3 (4.0-10.0)
[2017-06-01] MEDS: PRENATAL VITAMINS W/ FOLIC ACID TABLET (FP) PO SCH (10:48)
[2017-06-01] MEDS: SULFAMETHOXAZOLE/TRIMETHOPRIM 800MG/160MG D.S. TABLET PO SCH (10:48)
[2017-06-01] MEDS: THIAMINE HCL 100 MG TABLET (FP) PO SCH (22:19)
[2017-06-01] MEDS: chlordiazePOXIDE HCL 10 MG CAPSULE PO SCH (22:19)
[2017-06-01] MEDS: diphenhydrAMINE HCL 50 MG CAPSULE PO PRN (22:19)
[2017-06-02] MEDS: chlordiazePOXIDE HCL 10 MG CAPSULE PO SCH ×2 (06:01→10:33)
--- NOTE | 2017-06-02 08:19 | DS ---
[facility] Detox Discharge Summary Admission Date: 05/29/17 Discharge Date: 06/02/17 - History Present History: Alcohol Dependence, Cocaine Dependence Additional Comments: follow up with after care program as arrangement Pertinent Past History: hiv weight loss - Physical Exam Results Vital Signs: Vital Signs Temperature 97 F L 06/02/17 06:30 Pulse Rate 71 06/02/17 06:30 Respiratory Rate 18 06/02/17 06:30 Blood Pressure 133/76 06/02/17 06:30 O2 Sat by Pulse Oximetry (%) Pertinent Admission Physical Exam Findings: withdrawal symptom - Treatment Hospital Course: Detox Protocol Followed, Detoxed Safely, Responded well, Discharged Condition Good, Rehab Referral Accepted Patient [facility] - Medication Discharge Medications: Ambulatory Orders Abacavir/Dolutegravir/Lamivudi [Triumeq Tablet] 1 each PO DAILY 05/29/17 Sulfamethoxazole/Trimethoprim [Bactrim Ds -] 1 tab PO DAILY 05/29/17 - Diagnosis (1) Alcohol dependence with uncomplicated withdrawal Current Visit: Yes Status: Acute (2) HIV (human immunodeficiency virus infection) Current Visit: Yes Status: Chronic (3) Weight loss Current Visit: No Status: Acute - AMA Did Patient Leave Against Medical Advice: No
[2017-06-02 09:45] VITALS: BP 143/89; PULSE 88; TEMP 97.9
[2017-06-02] MEDS: PRENATAL VITAMINS W/ FOLIC ACID TABLET (FP) PO SCH (10:33)
[2017-06-02] MEDS: SULFAMETHOXAZOLE/TRIMETHOPRIM 800MG/160MG D.S. TABLET PO SCH (10:33)
== END 2017-06-02 13:42 | disposition other institution (70) | DRG 897 ==
LOC: YASAS 13:48 → Y6N 19:08
PROVIDERS: ADMIT Internal Medicine; ATTEND Internal Medicine
PROC: HZ2ZZZZ Detoxification Services for Substance Abuse Treatment (ICD-10-PCS; principal; 2017-05-29)
DX: F10.230 Alcohol dependence with withdrawal, uncomplicated (principal); Z21 Asymptomatic human immunodeficiency virus [HIV] infection status; R63.4 Abnormal weight loss; Z68.26 Body mass index [BMI] 26.0-26.9, adult
CPT/HCPCS: 36415; 80053; 81003; 85027; 86593; 86803; 90688; 93005; 93010; G0008

== ENCOUNTER 2017-06-02 13:52 | Inpatient (IN) | payer OTHER ==
--- NOTE | 2017-06-02 14:31 | HP ---
Psychiatrist Admission - Data Date of interview: 06/02/17 Admission source: 6N Identifying data: This is the second [facility] for this 57 years old single Black male, unemployed on food stamp, domiciled Medical History: Significant for HIV+ since 1999 Psychiatric History: Denies history of previous psychiatric treatment Physical/Sexual Abuse/Trauma History: Denies history of verbal, physical or sexual abuse as well as DV relationship. No service Additional Comment: Reports history of 4-5 previous misdemeanor arrests. No probation at present Allergies/Adverse Reactions: Allergies Allergy/AdvReac Type Severity Reaction Status Date / Time No Known Allergies Allergy Verified 05/29/17 18:01 Date of last physical exam: 05/29/17 Concur with the findings of this exam: Yes - Substance Abuse/Tx History Hx Alcohol Use: Yes Hx Substance Use: Yes Substance Use Type: Alcohol (Started drinking alcohol at age 22, consumes one pint of mile daily. Last drank on 05/29/17), Cocaine (Started smoking crack cocaine at age 20, consumes $200 worth daily. Last smoked on 05/27/17) Hx Substance Use Treatment: Yes (2 previous inpt detox & one inpt rehab admissions @ [facility]) Mental Status Exam - Mental Status Exam Alert and Oriented to: Time, Place, Person Cognitive Function: Fair Patient Appearance: Well Groomed Mood: Anxious Affect: Appropriate Patient Behavior: Cooperative Speech Pattern: Clear Voice Loudness: Normal Thought Process: Intact, Goal Oriented Thought Disorder: Not Present Hallucinations: Denies Suicidal Ideation: Denies Homicidal Ideation: Denies Insight/Judgement: Fair Sleep: Poorly Appetite: Good Muscle strength/Tone: Normal Gait/Station: Normal Psychiatric Findings - Problem List ([place] 1, 2,3) (1) Alcohol dependence Current Visit: Yes Status: Acute (2) Cocaine dependence Current Visit: No Status: Acute Qualifiers: (3) Cannabis dependence Current Visit: No Status: Acute (4) Substance-induced anxiety disorder Current Visit: Yes Status: Acute (5) Substance-induced sleep disorder Current Visit: Yes Status: Acute - Initial Treatment Plan Initial Treatment Plan: Monitor progress
[2017-06-02] MEDS ORDERED: IBUPROFEN 400 MG TABLET (FP) PO PRN (15:28)
[2017-06-02] MEDS ORDERED: LOPERAMIDE HCL 2 MG CAPSULE PO PRN (15:28)
[2017-06-02] MEDS ORDERED: MAGNESIUM HYDROX 2400MG/30ML ORAL SUSPENSION 30 ML CUP PO PRN (15:28)
[2017-06-02] MEDS ORDERED: hydrOXYzine PAMOATE 50 MG CAPSULE (FP) PO PRN (15:28)
[2017-06-02] MEDS ORDERED: ACETAMINOPHEN 325 MG TABLET (FP) PO PRN (15:28)
[2017-06-02] MEDS ORDERED: MAG HYDROX/AL HYDROX/SIMETH 30 ML UNIT-DOSE CUP PO PRN (15:28)
[2017-06-02] MEDS ORDERED: MAGNESIUM CITRATE 300 ML BOTTLE PO PRN (15:28)
[2017-06-02] MEDS ORDERED: MENTHOL/PHENOL 1 EACH UD MM PRN (15:28)
[2017-06-02] MEDS ORDERED: guaiFENesin/D-METHORPHAN HB 10 ML UNIT-DOSE CUPS PO PRN (15:28)
[2017-06-02] MEDS ORDERED: P-EPHED 60MG/TRIPROLIDI 2.5MG TABLET PO PRN (15:28)
--- NOTE | 2017-06-02 15:36 | HP ---
[facility] Rehab Assess/Revision - Admission History Admitted to Rehab from: [facility] [place] Date of Admission to Rehab: 06/02/17 - Findings Detox History & Physical reviewed: Yes Concur with findings: Yes Comments/Additional Findings: FOR REHAB PROTOCOL
--- NOTE | 2017-06-02 15:37 | HP ---
Admission ROS [facility] Allergies/Adverse Reactions: Allergies Allergy/AdvReac Type Severity Reaction Status Date / Time No Known Allergies Allergy Verified 05/29/17 18:01 - Ebola screening Have you traveled outside of the country in the last 21 days: No Have you had contact with anyone from an Ebola affected area: No Do you have a fever: No Patient History - Patient Medical History Hx Anemia: No Hx Asthma: No Hx Chronic Obstructive Pulmonary Disease (COPD): No Hx Cancer: No Hx Cardiac Disorders: No Hx Congestive Heart Failure: No Hx Hypertension: No Hx Hypercholesterolemia: No Hx Pacemaker: No HX Cerebrovascular Accident: No Hx Seizures: No Hx Dementia: No Hx Diabetes: No Hx Gastrointestinal Disorders: No Hx Liver Disease: No Hx Genitourinary Disorders: No Hx Sexually Transmitted Disorders: No Hx Renal Disease (ESRD): No Hx Thyroid Disease: No Hx Human Immunodeficiency Virus (HIV): Yes (since 1999) Hx Hepatitis C: No Hx Depression: No Hx Suicide Attempt: No Hx Bipolar Disorder: No Hx Schizophrenia: No - Patient Surgical History Past Surgical History: No Hx Neurologic Surgery: No Hx Cataract Extraction: No Hx Cardiac Surgery: No Hx Lung Surgery: No Hx Breast Surgery: No Hx Breast Biopsy: No Hx Abdominal Surgery: No Hx Appendectomy: No Hx Cholecystectomy: No Hx Genitourinary Surgery: No Hx Section: No Hx Orthopedic Surgery: No Anesthesia Reaction: No - PPD History Previous Implant?: Yes Documented Results: Negative w/o proof Date: 08/17/16 Results: 0 mm - Reproductive History Patient : No - Smoking Cessation Smoking history: Never smoked Have you smoked in the past 12 months: No Aproximately how many cigarettes per day: 0 Cigars Per Day: 0 Hx Chewing Tobacco Use: No - Substances Abused Alcohol Route: Oral Frequency: Daily Amount used: 1 PINT OF GERRY Age of first use: 22 Date of Last Use: 05/29/17 Cocaine Route: Smoking Frequency: 1-2 times per week Amount used: $200 Age of first use: 20 Date of Last Use: 05/27/17 Family Disease History - Family Disease History Family Disease History: Other: Father (), Mother (), Brother ( NO CONTACT), Sister (NO CONTACT) [facility]HS Breath Alcohol Content Breath Alcohol Content: 0 Inpatient Rehab Admission - Initial Determination Are CD services needed?: Yes Free of communicable disease: Yes Not in need of hospitalization: Yes - Rehab Admission Criteria Previous failed treatment: Yes Poor recovery environment: Yes Comorbidities: Yes Patient is meeting Inpatient Rehab admission criteria:: Yes
[2017-06-02] MEDS: ABACAVIR/DOLUTEGRAVIR/LAMIVUDI (TRIUMEQ) TABLET -NF PO SCH (17:05)
[2017-06-02] MEDS: diphenhydrAMINE HCL 50 MG CAPSULE PO PRN (21:46)
[2017-06-02] MEDS: THIAMINE HCL 100 MG TABLET (FP) PO SCH (21:46)
[2017-06-03] MEDS: PRENATAL VITAMINS W/ FOLIC ACID TABLET (FP) PO SCH (10:06)
[2017-06-03] MEDS: SULFAMETHOXAZOLE/TRIMETHOPRIM 800MG/160MG D.S. TABLET PO SCH (10:06)
[2017-06-03] MEDS: ABACAVIR/DOLUTEGRAVIR/LAMIVUDI (TRIUMEQ) TABLET -NF PO SCH (10:06)
[2017-06-03] MEDS: THIAMINE HCL 100 MG TABLET (FP) PO SCH (21:32)
[2017-06-03] MEDS: diphenhydrAMINE HCL 50 MG CAPSULE PO PRN (21:32)
[2017-06-04] MEDS: PRENATAL VITAMINS W/ FOLIC ACID TABLET (FP) PO SCH (09:59)
[2017-06-04] MEDS: ABACAVIR/DOLUTEGRAVIR/LAMIVUDI (TRIUMEQ) TABLET -NF PO SCH (09:59)
[2017-06-04] MEDS: SULFAMETHOXAZOLE/TRIMETHOPRIM 800MG/160MG D.S. TABLET PO SCH (09:59)
[2017-06-04] MEDS: diphenhydrAMINE HCL 50 MG CAPSULE PO PRN (21:08)
[2017-06-04] MEDS: THIAMINE HCL 100 MG TABLET (FP) PO SCH (21:08)
[2017-06-05] MEDS: ABACAVIR/DOLUTEGRAVIR/LAMIVUDI (TRIUMEQ) TABLET -NF PO SCH (09:50)
[2017-06-05] MEDS: PRENATAL VITAMINS W/ FOLIC ACID TABLET (FP) PO SCH (09:50)
[2017-06-05] MEDS: SULFAMETHOXAZOLE/TRIMETHOPRIM 800MG/160MG D.S. TABLET PO SCH (09:50)
[2017-06-05] MEDS: diphenhydrAMINE HCL 50 MG CAPSULE PO PRN (21:25)
[2017-06-05] MEDS: THIAMINE HCL 100 MG TABLET (FP) PO SCH (21:25)
[2017-06-06] MEDS: SULFAMETHOXAZOLE/TRIMETHOPRIM 800MG/160MG D.S. TABLET PO SCH (10:20)
[2017-06-06] MEDS: PRENATAL VITAMINS W/ FOLIC ACID TABLET (FP) PO SCH (10:20)
[2017-06-06] MEDS: ABACAVIR/DOLUTEGRAVIR/LAMIVUDI (TRIUMEQ) TABLET -NF PO SCH (10:33)
[2017-06-06] MEDS: THIAMINE HCL 100 MG TABLET (FP) PO SCH (21:52)
[2017-06-06] MEDS: diphenhydrAMINE HCL 50 MG CAPSULE PO PRN (21:53)
[2017-06-07] MEDS: SULFAMETHOXAZOLE/TRIMETHOPRIM 800MG/160MG D.S. TABLET PO SCH (10:01)
[2017-06-07] MEDS: ABACAVIR/DOLUTEGRAVIR/LAMIVUDI (TRIUMEQ) TABLET -NF PO SCH (10:01)
[2017-06-07] MEDS: PRENATAL VITAMINS W/ FOLIC ACID TABLET (FP) PO SCH (10:01)
[2017-06-07] MEDS: diphenhydrAMINE HCL 50 MG CAPSULE PO PRN (21:05)
[2017-06-07] MEDS: THIAMINE HCL 100 MG TABLET (FP) PO SCH (21:05)
[2017-06-08] MEDS: SULFAMETHOXAZOLE/TRIMETHOPRIM 800MG/160MG D.S. TABLET PO SCH (10:13)
[2017-06-08] MEDS: ABACAVIR/DOLUTEGRAVIR/LAMIVUDI (TRIUMEQ) TABLET -NF PO SCH (10:13)
[2017-06-08] MEDS: PRENATAL VITAMINS W/ FOLIC ACID TABLET (FP) PO SCH (10:13)
[2017-06-08] MEDS: THIAMINE HCL 100 MG TABLET (FP) PO SCH (21:38)
[2017-06-08] MEDS: diphenhydrAMINE HCL 50 MG CAPSULE PO PRN (21:39)
[2017-06-09] MEDS: PRENATAL VITAMINS W/ FOLIC ACID TABLET (FP) PO SCH (10:04)
[2017-06-09] MEDS: SULFAMETHOXAZOLE/TRIMETHOPRIM 800MG/160MG D.S. TABLET PO SCH (10:04)
[2017-06-09] MEDS: ABACAVIR/DOLUTEGRAVIR/LAMIVUDI (TRIUMEQ) TABLET -NF PO SCH (10:04)
[2017-06-09] MEDS: THIAMINE HCL 100 MG TABLET (FP) PO SCH (21:55)
[2017-06-09] MEDS: diphenhydrAMINE HCL 50 MG CAPSULE PO PRN (21:55)
[2017-06-10] MEDS: PRENATAL VITAMINS W/ FOLIC ACID TABLET (FP) PO SCH (09:52)
[2017-06-10] MEDS: SULFAMETHOXAZOLE/TRIMETHOPRIM 800MG/160MG D.S. TABLET PO SCH (09:53)
[2017-06-10] MEDS: ABACAVIR/DOLUTEGRAVIR/LAMIVUDI (TRIUMEQ) TABLET -NF PO SCH (09:53)
[2017-06-10] MEDS: THIAMINE HCL 100 MG TABLET (FP) PO SCH (21:59)
[2017-06-10] MEDS: diphenhydrAMINE HCL 50 MG CAPSULE PO PRN (21:59)
[2017-06-11] MEDS: ABACAVIR/DOLUTEGRAVIR/LAMIVUDI (TRIUMEQ) TABLET -NF PO SCH (10:15)
[2017-06-11] MEDS: SULFAMETHOXAZOLE/TRIMETHOPRIM 800MG/160MG D.S. TABLET PO SCH (10:15)
[2017-06-11] MEDS: PRENATAL VITAMINS W/ FOLIC ACID TABLET (FP) PO SCH (10:15)
[2017-06-11] MEDS: diphenhydrAMINE HCL 50 MG CAPSULE PO PRN (21:37)
[2017-06-11] MEDS: THIAMINE HCL 100 MG TABLET (FP) PO SCH (21:37)
[2017-06-12] MEDS: PRENATAL VITAMINS W/ FOLIC ACID TABLET (FP) PO SCH (10:09)
[2017-06-12] MEDS: ABACAVIR/DOLUTEGRAVIR/LAMIVUDI (TRIUMEQ) TABLET -NF PO SCH (10:09)
[2017-06-12] MEDS: SULFAMETHOXAZOLE/TRIMETHOPRIM 800MG/160MG D.S. TABLET PO SCH (10:09)
[2017-06-12] MEDS: THIAMINE HCL 100 MG TABLET (FP) PO SCH (21:29)
[2017-06-12] MEDS: diphenhydrAMINE HCL 50 MG CAPSULE PO PRN (21:30)
[2017-06-13 07:03] VITALS: TEMP 98.6
[2017-06-13] MEDS: PRENATAL VITAMINS W/ FOLIC ACID TABLET (FP) PO SCH (09:15)
[2017-06-13] MEDS: SULFAMETHOXAZOLE/TRIMETHOPRIM 800MG/160MG D.S. TABLET PO SCH (09:15)
[2017-06-13] MEDS: ABACAVIR/DOLUTEGRAVIR/LAMIVUDI (TRIUMEQ) TABLET -NF PO SCH (09:16)
[2017-06-13 09:19] VITALS: BP 143/77; PULSE 112
--- NOTE | 2017-06-13 09:45 | PN ---
Psychiatric Progress Note Vital Signs: Vital Signs Period Temp Pulse Resp BP Sys/Chandler Pulse Ox Last 24 Hr 98.6 F 82-112 18-20 143-146/77-97 Date of Session: 06/13/17 Chief Complaint:: Discharge Note HPI: Patient addressing Alcohol, Cocaine and Cannabis Dependence comorbid with Substance-induced Anxiety Disorder and Substance-induced Sleep Disorder Current Medications: Active Medications Generic Name Dose Route Start Last Admin Trade Name Freq PRN Reason Stop Dose Admin Acetaminophen 650 mg 06/02/17 15:28 Tylenol - PO Q4H PRN FEVER OR PAIN Al Hydroxide/Mg Hydroxide 30 ml 06/02/17 15:28 06/03/17 13:22 Mylanta Oral Suspension - PO 30 ml Q6H PRN Administration DYSPEPSIA Diphenhydramine HCl 50 mg 06/02/17 15:28 06/12/17 21:30 Benadryl - PO 50 mg HSMR1 PRN Administration FOR ITCHING Eucalyptus/Menthol/Phenol/Sorbitol 1 each 06/02/17 15:28 Cepastat Lozenge - MM Q4H PRN SORE THROAT Guaifenesin 10 ml 06/02/17 15:28 Robitussin Dm - PO Q6H PRN COUGH Hydroxyzine Pamoate 50 mg 06/02/17 15:28 Vistaril - PO Q4H PRN AGITATION Ibuprofen 400 mg 06/02/17 15:28 06/04/17 16:57 Motrin - PO 400 mg Q6H PRN Administration PAIN Loperamide HCl 4 mg 06/02/17 15:28 Imodium - PO Q6H PRN DIARRHEA Magnesium Hydroxide 30 ml 06/02/17 15:28 Milk Of Magnesia - PO DAILY PRN CONSTIPATION Multivit/Folic Acid/Iron 1 tab 06/03/17 10:00 06/13/17 09:15 Vitamins (Sjr) - PO 1 tab DAILY ALMA Administration Pseudoephedrine/Triprolidine 1 combo 06/02/17 15:28 Actifed - PO TID PRN NASAL CONGESTION Thiamine HCl 100 mg 06/02/17 22:00 06/12/17 21:29 Vitamin B1 - PO 100 mg HS ALMA Administration Trimethoprim/Sulfamethoxazole 1 each 06/03/17 10:00 06/13/17 09:15 Bactrim Ds - PO 1 each DAILY ALMA Administration Current Side Effect: No Lab tests ordered: Yes Lab tests reviewed: Yes Provider note:: Patient has completed this program today. He has met his short term goals and will continue to address his issues in outpatient treatment at [facility]. Told staff writer that from his participation in this program , he has learned the importance of "If you don't greens picker, you don't get high". He is stable for discharge today Total face to face time:: 35 Mental Status Exam - Mental Status Exam Alert and Oriented to: Time, Place, Person Cognitive Function: Fair Patient Appearance: Well Groomed Mood: Hopeful, Euthymic Affect: Appropriate Patient Behavior: Cooperative Speech Pattern: Clear, Artificially Ventilated Thought Process: Intact, Goal Oriented Thought Disorder: Not Present Hallucinations: Denies Suicidal Ideation: Denies Homicidal Ideation: Denies Insight/Judgement: Fair Sleep: Fair Appetite: Good Muscle strength/Tone: Normal Gait/Station: Normal Psychiatric Treatment Plan - Problem List (1) Alcohol dependence Current Visit: Yes (2) Cocaine dependence Current Visit: No Qualifiers: (3) Cannabis dependence Current Visit: No (4) Substance-induced anxiety disorder Current Visit: Yes (5) Substance-induced sleep disorder Current Visit: Yes Initial treatment plan: Patient is discharged today and referred to [facility] for outpatient treatment
== END 2017-06-13 09:50 | disposition home or self-care (01) | DRG 895 ==
LOC: YASAS 13:52 → Y3W 14:00
PROVIDERS: ADMIT Psychiatry & Neurology Psychiatry; ATTEND Psychiatry & Neurology Psychiatry
PROC: HZ42ZZZ Group Counseling for Substance Abuse Treatment, Cognitive-Behavioral (ICD-10-PCS; principal; 2017-06-02)
DX: F10.230 Alcohol dependence with withdrawal, uncomplicated (principal); F14.20 Cocaine dependence, uncomplicated; F19.282 Other psychoactive substance dependence with psychoactive substance-induced sleep disorder; F12.20 Cannabis dependence, uncomplicated; F19.24 Other psychoactive substance dependence with psychoactive substance-induced mood disorder; Z21 Asymptomatic human immunodeficiency virus [HIV] infection status

== ENCOUNTER 2017-12-18 12:26 | Inpatient (IN) | payer OTHER ==
[2017-12-18 13:34] VITALS: BMI 27.3
--- NOTE | 2017-12-18 14:46 | HP ---
CIWA Score - CIWA Score Nausea/Vomitin-Mild Nausea/No Vomiting Muscle Tremors: 2 Anxiety: 2 Agitation: 2 Paroxysmal Sweats: 1-Minimal Palms Moist Orientation: 1-Uncertain about Date (forgetful with date.) Tacttile Disturbances: 2-Mild Itch/Numbness/Burn Auditory Disturbances: 0-None Visual Disturbances: 0-None Headache: 1-Very Mild CIWA-Ar Total Score: 12 Admission ROS S - HPI Chief Complaint: ETOH withdrawal symptoms. Allergies/Adverse Reactions: Allergies Allergy/AdvReac Type Severity Reaction Status Date / Time No Known Allergies Allergy Verified 05/29/17 18:01 History of Present Illness: Patient presents with ETOH withdrawal symptoms. Patient has history of previous detox at [facility] 08/2016 and 05/2017. Patient relapse soon after discharge. Started drinking and using crack/cocaine at age 20. Drinks up to 1 pint a day and smokes up to 20 vials of crack daily. Last time he drank was today and last use of crack 12/16/17. Patient denies seizures from ETOH use and withdrawal. Has PMH of HIV and reports taking medication everyday. Last time he took medication was yesterday. Does not have meds with him and no one can bring medication to him. Patient reports feeling down. Denies SI/HI and suicide attempts. Exam Limitations: No Limitations - Ebola screening Have you traveled outside of the country in the last 21 days: No Have you had contact with anyone from an Ebola affected area: No Have you been sick,other than usual withdrawal symptoms: No Do you have a fever: No - Review of Systems Constitutional: Night Sweats, Changes in sleep, Unexplained wgt Loss EENT: reports: No Symptoms Reported Respiratory: reports: No Symptoms reported Cardiac: reports: No Symptoms Reported GI: reports: Nausea, Poor Fluid Intake, Abdominal cramping : reports: No Symptoms Reported Musculoskeletal: reports: Back Pain, Muscle Pain Integumentary: reports: Sweating Neuro: reports: Headache, Tremors Endocrine: reports: Unexplained Weight Loss Hematology: reports: No Symptoms Reported Psychiatric: reports: Anxious, Depressed, Disorientated (Forgetful to date. Knows month is December.) Patient History - Patient Medical History Hx Anemia: No Hx Asthma: No Hx Chronic Obstructive Pulmonary Disease (COPD): No Hx Cancer: No Hx Cardiac Disorders: No Hx Congestive Heart Failure: No Hx Hypertension: No Hx Hypercholesterolemia: No Hx Pacemaker: No HX Cerebrovascular Accident: No Hx Seizures: No Hx Dementia: No Hx Diabetes: No Hx Gastrointestinal Disorders: No Hx Liver Disease: No Hx Genitourinary Disorders: No Hx Sexually Transmitted Disorders: No Hx Renal Disease (ESRD): No Hx Thyroid Disease: No Hx Human Immunodeficiency Virus (HIV): Yes (since 1999) Hx Hepatitis C: No Hx Depression: No (Pt reports feeling depressed) Hx Suicide Attempt: No (Denies SI/HI) Hx Bipolar Disorder: No Hx Schizophrenia: No - Patient Surgical History Past Surgical History: No Hx Neurologic Surgery: No Hx Cataract Extraction: No Hx Cardiac Surgery: No Hx Lung Surgery: No Hx Breast Surgery: No Hx Breast Biopsy: No Hx Abdominal Surgery: No Hx Appendectomy: No Hx Cholecystectomy: No Hx Genitourinary Surgery: No Hx Section: No Hx Orthopedic Surgery: No Anesthesia Reaction: No - PPD History Previous Implant?: Yes Documented Results: Negative w/proof Date: 08/17/16 Results: 0 mm PPD to be Administered?: Yes - Smoking Cessation Smoking history: Never smoked Have you smoked in the past 12 months: No Aproximately how many cigarettes per day: 0 Cigars Per Day: 0 Hx Chewing Tobacco Use: No Initiated information on smoking cessation: No - Substance & Tx. History Hx Alcohol Use: Yes Hx Substance Use: Yes Substance Use Type: Cocaine Hx Substance Use Treatment: Yes - Substances Abused Alcohol Route: Oral Frequency: Daily Age of first use: 20 Date of Last Use: 12/18/17 Cocaine Route: Smoking Frequency: 3-6 times per week Amount used: 20 vials daily Age of first use: 20 Date of Last Use: 12/16/17 Family Disease History - Family Disease History Family Disease History: Other: Father (), Mother (), Brother ( NO CONTACT), Sister (NO CONTACT) Admission Physical Exam BHS - Vital Signs Vital Signs: Vital Signs - 24 hr 12/18/17 13:33 Temperature 98.2 F Pulse Rate 92 H Respiratory 18 Rate Blood Pressure 151/86 - Physical General Appearance: Yes: No Apparent Distress, Nourished, Appropriately Dressed , Alcohol on Breath, Sweating, Anxious HEENTM: Yes: EOMI, Hearing grossly Normal, Normocephalic, Normal Voice, JUDAH, Pharynx Normal Respiratory: Yes: Chest Non-Tender, Lungs Clear, Normal Breath Sounds, No Respiratory Distress, No Accessory Muscle Use Neck: Yes: No masses,lesions,Nodules, Supple Breast: Yes: Breast Exam Deferred Cardiology: Yes: Regular Rhythm, Regular Rate, S1, S2 Abdominal: Yes: Normal Bowel Sounds, Non Tender, Soft Genitourinary: Yes: Within Normal Limits Back: Yes: Normal Inspection Musculoskeletal: Yes: full range of Motion, Gait Steady Extremities: Yes: Normal Inspection, Normal Range of Motion, Non-Tender, Tremors 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, Alert, Motor Strength 5/5, Disoriented , Depressed Affect Integumentary: Yes: Normal Color, Warm, Moist Lymphatic: Yes: Within Normal Limits - Diagnostic (1) Depressed affect Current Visit: Yes Status: Acute (2) Anxiety Current Visit: Yes Status: Acute (3) Alcohol dependence with uncomplicated withdrawal Current Visit: No Status: Acute (4) Cocaine dependence Current Visit: Yes Status: Chronic Qualifiers: Substance use status: uncomplicated Qualified Code(s): F14.20 - Cocaine dependence, uncomplicated (5) HIV (human immunodeficiency virus infection) Current Visit: No Status: Chronic Cleared for Admission [facility] - Detox or Rehab [facility] Level of Care: Medically Managed Detox Regimen/Protocol: Librium [facility] Breath Alcohol Content Breath Alcohol Content: 0 Urine Drug Screen - Results Drug Screen Negative: No Urine Drug Screen Results: ORAL-Cocaine
[2017-12-18] MEDS ORDERED: MAGNESIUM HYDROX 2400MG/30ML ORAL SUSPENSION 30 ML CUP PO PRN (16:36)
[2017-12-18] MEDS ORDERED: MENTHOL/PHENOL 1 EACH UD MM PRN (16:36)
[2017-12-18] MEDS ORDERED: guaiFENesin/D-METHORPHAN HB 10 ML UNIT-DOSE CUPS PO PRN (16:36)
[2017-12-18] MEDS ORDERED: P-EPHED 60MG/TRIPROLIDI 2.5MG TABLET PO PRN (16:36)
[2017-12-18] MEDS ORDERED: MAG HYDROX/AL HYDROX/SIMETH 30 ML UNIT-DOSE CUP PO PRN (16:36)
[2017-12-18] MEDS ORDERED: hydrOXYzine PAMOATE 50 MG CAPSULE (FP) PO PRN (16:36)
[2017-12-18] MEDS ORDERED: LOPERAMIDE HCL 2 MG CAPSULE PO PRN (16:36)
[2017-12-18] MEDS ORDERED: IBUPROFEN 400 MG TABLET (FP) PO PRN (16:36)
[2017-12-18] MEDS ORDERED: MAGNESIUM CITRATE 300 ML BOTTLE PO PRN (16:36)
[2017-12-18] MEDS ORDERED: ACETAMINOPHEN 325 MG TABLET (FP) PO PRN (16:36)
[2017-12-18] MEDS ORDERED: chlordiazePOXIDE HCL 25 MG CAPSULE PO PRN (16:39)
[2017-12-18] MEDS ORDERED: chlordiazePOXIDE HCL 25 MG CAPSULE PO ONE (18:00)
[2017-12-18] MEDS: chlordiazePOXIDE HCL 25 MG CAPSULE PO SCH ×2 (19:09→22:14)
[2017-12-18] MEDS ORDERED: MELATONIN 5 MG TABLETS PO PRN (22:00)
[2017-12-18] MEDS: THIAMINE HCL 100 MG TABLET (FP) PO SCH (22:14)
[2017-12-18 23:11] LABS: URINE APPEARANCE CLEAR; URINE BILIRUBIN NEGATIVE (<2.0 mg/dL); URINE COLOR LTYELLOW; URINE GLUCOSE (UA) NEGATIVE (NEGATIVE); URINE KETONE NEGATIVE (NEGATIVE); URINE LEUK ESTERASE NEGATIVE (NEGATIVE); URINE NITRITE NEGATIVE (NEGATIVE); URINE PROTEIN NEGATIVE (NEGATIVE); URINE UROBILINOGEN NEGATIVE mg/dL (0.2-1.0)
[2017-12-19] MEDS: chlordiazePOXIDE HCL 25 MG CAPSULE PO SCH ×4 (06:01→22:35)
[2017-12-19] MEDS ORDERED: diphenhydrAMINE HCL 25 MG CAPSULE (FP) PO PRN (09:37)
[2017-12-19 09:52] LABS: HEMATOCRIT 37.3 % (35.4-49); HEMOGLOBIN 12.8 GM/dL (11.7-16.9); MCH 31.8 pg (25.7-33.7); MCHC 34.2 g/dl (32.0-35.9); MEAN CELL VOLUME 92.8 fl (80-96); MEAN PLT VOLUME 9.3 fl (7.5-11.1); PLATELET COUNT 295 K/MM3 (134-434); RBC 4.02 M/mm3 (4.00-5.60); RDW 13.1 % (11.9-15.9); WHITE BLOOD COUNT 3.3 K/mm3 (4.0-10.0)
--- NOTE | 2017-12-19 09:52 | EKG ---
Test Reason : Blood Pressure : / mmHG Vent. Rate : 071 BPM Atrial Rate : 071 BPM P-R Int : 150 ms QRS Dur : 084 ms QT Int : 394 ms P-R-T Axes : 042 060 034 degrees QTc Int : 428 ms NORMAL SINUS RHYTHM NORMAL ECG WHEN COMPARED WITH ECG OF 29-MAY-2017 19:48, NO SIGNIFICANT CHANGE WAS FOUND Confirmed by MD Arguello Edward ([id number]) on 12/19/2017 9:52:12 AM Referred By: Confirmed By:Zach Arguello MD
[2017-12-19] MEDS ORDERED: ABACAVIR/DOLUTEGRAVIR/LAMIVUDI (TRIUMEQ) TABLET -NF PO SCH (10:00)
[2017-12-19] MEDS ORDERED: FLUOCINONIDE 0.05% TOP OINT (60 GM TUBE) TP SCH (10:00)
[2017-12-19 10:06] LABS: CHLORIDE 110 mmol/L (98-107); POTASSIUM 3.8 mmol/L (3.5-5.1); SODIUM 145 mmol/L (136-145)
--- NOTE | 2017-12-19 10:10 | CONSULT ---
[facility] Psychiatric Consult - Data Date of interview: 12/19/17 Admission source: [facility] Identifying data: Patient is a 57 year old single domiciled male, without kids, unemployed and uncurrently homeless. This is one of multiple admissions for patient. Pt. admitted to for alcohol and cocaine dependence. Substance Abuse History: Following information confirmed with Mr. Lindquist: Smoking Cessation. Smoking history: Never smoked. Have you smoked in the past 12 months: No. Aproximately how many cigarettes per day: 0. Cigars Per Day: 0. Hx Chewing Tobacco Use: No. Initiated information on smoking cessation: No. - Substance & Tx. History. Hx Alcohol Use: Yes. Hx Substance Use: Yes. Substance Use Type: Cocaine. Hx Substance Use Treatment: Yes. - Substances Abused. Alcohol. Route: Oral. Frequency: Daily. Age of first use: 20. Date of Last Use: 12/18/17. Cocaine. Route: Smoking. Frequency: 3-6 times per week. Amount used: 20 vials daily. Age of first use: 20. Date of Last Use : 12/16/17 Medical History: HIV Psychiatric History: Patient denies h/o psychiatric hospitalizations, outpatient care, and suicide attempt. Physical/Sexual Abuse/Trauma History: Denies. Mental Status Exam - Mental Status Exam Alert and Oriented to: Time, Place, Person Cognitive Function: Good Patient Appearance: Well Groomed Mood: Euthymic Affect: Mood Congruent Patient Behavior: Cooperative Speech Pattern: Appropriate Voice Loudness: Normal Thought Process: Intact, Goal Oriented Thought Disorder: Not Present Hallucinations: Denies Suicidal Ideation: Denies Homicidal Ideation: Denies Insight/Judgement: Poor Sleep: Poorly Appetite: Fair Muscle strength/Tone: Normal Gait/Station: Normal Psychiatric Findings - Problem List ([place] 1, 2,3) (1) Cocaine dependence Current Visit: Yes Status: Chronic Qualifiers: Substance use status: uncomplicated Qualified Code(s): F14.20 - Cocaine dependence, uncomplicated (2) Alcohol dependence with uncomplicated withdrawal Current Visit: Yes Status: Acute (3) Substance-induced sleep disorder Current Visit: Yes Status: Acute - Initial Treatment Plan Initial Treatment Plan: Psychoeducation provided. Detoxification in progress. Ambien 5mg qhs prn ordered. Benefits and side effects discussed. Patient made aware of the risk of parasomnia. Verbal consent given. Will continue to monitor patient.
[2017-12-19] MEDS: SULFAMETHOXAZOLE/TRIMETHOPRIM 800MG/160MG D.S. TABLET PO SCH (10:21)
[2017-12-19] MEDS: PRENATAL VITAMINS W/ FOLIC ACID TABLET (FP) PO SCH (10:22)
[2017-12-19] MEDS: FLUOCINONIDE 0.05% TOP OINT (15 GM TUBE) TP SCH ×2 (10:58→22:47)
[2017-12-19 11:03] LABS: ALBUMIN 3.4 g/dl (3.4-5.0); ALK PHOS 76 U/L (45-117); ANION GAP 7 (8-16); BILIRUBIN,TOTAL 0.5 mg/dL (0.2-1.0); BLOOD UREA NITROGEN 13 mg/dL (7-18); CALCIUM 9.1 mg/dL (8.5-10.1); CO2 28 mmol/L (21-32); CREATININE 1.2 mg/dL (0.7-1.3); GLUCOSE,RANDOM 103 mg/dL (74-106); SGOT/AST 23 U/L (15-37); SGPT/ALT 24 U/L (12-78); TOT PROT 7.3 g/dl (6.4-8.2)
--- NOTE | 2017-12-19 13:01 | PN ---
[facility] CIWA - CIWA Score Nausea/Vomitin Muscle Tremors: 3 Anxiety: 3 Agitation: 2 Paroxysmal Sweats: 1-Minimal Palms Moist Orientation: 0-Oriented Tacttile Disturbances: 1-Very Mild Itch/Numbness Auditory Disturbances: 1-Very Mild Visual Disturbances: 0-None Headache: 2-Mild CIWA-Ar Total Score: 16 S Progress Note (SOAP) Subjective: ALERT,IRRITABLE,ANXIOUS,INTERRUPTED SLEEP,TREMOR,WART MUCOSA OF UPPER LIP Objective: 12/19/17 12:59 Vital Signs Temperature 97.5 F L 12/19/17 08:59 Pulse Rate 75 12/19/17 08:59 Respiratory Rate 18 12/19/17 08:59 Blood Pressure 147/94 12/19/17 08:59 O2 Sat by Pulse Oximetry (%) EKG NSR,NORMAL ECG PRO;TRUE QT 394/428 Laboratory Last Values WBC 3.3 K/mm3 (4.0-10.0) L 12/19/17 06:00 RBC 4.02 M/mm3 (4.00-5.60) 12/19/17 06:00 Hgb 12.8 GM/dL (11.7-16.9) 12/19/17 06:00 Hct 37.3 % (35.4-49) 12/19/17 06:00 MCV 92.8 fl (80-96) 12/19/17 06:00 MCH 31.8 pg (25.7-33.7) 12/19/17 06:00 MCHC 34.2 g/dl (32.0-35.9) 12/19/17 06:00 RDW 13.1 % (11.9-15.9) 12/19/17 06:00 Plt Count 295 K/MM3 (134-434) D 12/19/17 06:00 MPV 9.3 fl (7.5-11.1) 12/19/17 06:00 Sodium 145 mmol/L (136-145) 12/19/17 06:00 Potassium 3.8 mmol/L (3.5-5.1) 12/19/17 06:00 Chloride 110 mmol/L (98-107) H 12/19/17 06:00 Carbon Dioxide 28 mmol/L (21-32) 12/19/17 06:00 Anion Gap 7 (8-16) L 12/19/17 06:00 BUN 13 mg/dL (7-18) 12/19/17 06:00 Creatinine 1.2 mg/dL (0.7-1.3) 12/19/17 06:00 Creat Clearance w eGFR > 60 (>60) 12/19/17 06:00 Random Glucose 103 mg/dL (74-106) D 12/19/17 06:00 Calcium 9.1 mg/dL (8.5-10.1) 12/19/17 06:00 Total Bilirubin 0.5 mg/dL (0.2-1.0) D 12/19/17 06:00 AST 23 U/L (15-37) D 12/19/17 06:00 ALT 24 U/L (12-78) 12/19/17 06:00 Alkaline Phosphatase 76 U/L (45-117) 12/19/17 06:00 Total Protein 7.3 g/dl (6.4-8.2) 12/19/17 06:00 Albumin 3.4 g/dl (3.4-5.0) 12/19/17 06:00 Urine Color Ltyellow 12/18/17 18:17 Urine Appearance Clear 12/18/17 18:17 Urine pH 5.0 (5.0-8.0) 12/18/17 18:17 Ur Specific [place] 1.020 (1.001-1.035) 12/18/17 18:17 Urine Protein Negative (NEGATIVE) 12/18/17 18:17 Urine Glucose (UA) Negative (NEGATIVE) 12/18/17 18:17 Urine Ketones Negative (NEGATIVE) 12/18/17 18:17 Urine Blood Negative (NEGATIVE) 12/18/17 18:17 Urine Nitrite Negative (NEGATIVE) 12/18/17 18:17 Urine Bilirubin Negative (<2.0 mg/dL) 12/18/17 18:17 Urine Urobilinogen Negative mg/dL (0.2-1.0) 12/18/17 18:17 Ur Leukocyte Esterase Negative (NEGATIVE) 12/18/17 18:17 Assessment: 12/19/17 13:01 WITHDRAWAL SYMPTOM Plan: CONTINUE DETOX
[2017-12-19] MEDS: ZOLPIDEM TARTRATE 5 MG TABLET PO PRN (22:35)
[2017-12-19] MEDS: THIAMINE HCL 100 MG TABLET (FP) PO SCH (22:35)
[2017-12-20] MEDS: chlordiazePOXIDE HCL 25 MG CAPSULE PO SCH ×2 (05:51→10:53)
[2017-12-20] MEDS: PRENATAL VITAMINS W/ FOLIC ACID TABLET (FP) PO SCH (10:52)
[2017-12-20] MEDS: SULFAMETHOXAZOLE/TRIMETHOPRIM 800MG/160MG D.S. TABLET PO SCH (10:52)
[2017-12-20] MEDS: FLUOCINONIDE 0.05% TOP OINT (15 GM TUBE) TP SCH ×2 (10:53→22:32)
--- NOTE | 2017-12-20 11:22 | PN ---
S CIWA - CIWA Score Nausea/Vomitin Muscle Tremors: 3 Anxiety: 3 Agitation: 2 Paroxysmal Sweats: 1-Minimal Palms Moist Orientation: 0-Oriented Tacttile Disturbances: 1-Very Mild Itch/Numbness Auditory Disturbances: 1-Very Mild Visual Disturbances: 0-None Headache: 2-Mild CIWA-Ar Total Score: 16 BHS Progress Note (SOAP) Subjective: ALERT,IRRITABLE,ANXIOUS,INTERRUPTED SLEEP,TREMOR,PAIN IN THE BODY Objective: 12/20/17 11:19 Vital Signs Temperature 96.8 F L 12/20/17 09:33 Pulse Rate 87 12/20/17 09:33 Respiratory Rate 18 12/20/17 09:33 Blood Pressure 132/67 12/20/17 09:33 O2 Sat by Pulse Oximetry (%) 12/20/17 11:19 Laboratory Last Values WBC 3.3 K/mm3 (4.0-10.0) L 12/19/17 06:00 RBC 4.02 M/mm3 (4.00-5.60) 12/19/17 06:00 Hgb 12.8 GM/dL (11.7-16.9) 12/19/17 06:00 Hct 37.3 % (35.4-49) 12/19/17 06:00 MCV 92.8 fl (80-96) 12/19/17 06:00 MCH 31.8 pg (25.7-33.7) 12/19/17 06:00 MCHC 34.2 g/dl (32.0-35.9) 12/19/17 06:00 RDW 13.1 % (11.9-15.9) 12/19/17 06:00 Plt Count 295 K/MM3 (134-434) D 12/19/17 06:00 MPV 9.3 fl (7.5-11.1) 12/19/17 06:00 Sodium 145 mmol/L (136-145) 12/19/17 06:00 Potassium 3.8 mmol/L (3.5-5.1) 12/19/17 06:00 Chloride 110 mmol/L (98-107) H 12/19/17 06:00 Carbon Dioxide 28 mmol/L (21-32) 12/19/17 06:00 Anion Gap 7 (8-16) L 12/19/17 06:00 BUN 13 mg/dL (7-18) 12/19/17 06:00 Creatinine 1.2 mg/dL (0.7-1.3) 12/19/17 06:00 Creat Clearance w eGFR > 60 (>60) 12/19/17 06:00 Random Glucose 103 mg/dL (74-106) D 12/19/17 06:00 Calcium 9.1 mg/dL (8.5-10.1) 12/19/17 06:00 Total Bilirubin 0.5 mg/dL (0.2-1.0) D 12/19/17 06:00 AST 23 U/L (15-37) D 12/19/17 06:00 ALT 24 U/L (12-78) 12/19/17 06:00 Alkaline Phosphatase 76 U/L (45-117) 12/19/17 06:00 Total Protein 7.3 g/dl (6.4-8.2) 12/19/17 06:00 Albumin 3.4 g/dl (3.4-5.0) 12/19/17 06:00 Urine Color Ltyellow 12/18/17 18:17 Urine Appearance Clear 12/18/17 18:17 Urine pH 5.0 (5.0-8.0) 12/18/17 18:17 Ur Specific [place] 1.020 (1.001-1.035) 12/18/17 18:17 Urine Protein Negative (NEGATIVE) 12/18/17 18:17 Urine Glucose (UA) Negative (NEGATIVE) 12/18/17 18:17 Urine Ketones Negative (NEGATIVE) 12/18/17 18:17 Urine Blood Negative (NEGATIVE) 12/18/17 18:17 Urine Nitrite Negative (NEGATIVE) 12/18/17 18:17 Urine Bilirubin Negative (<2.0 mg/dL) 12/18/17 18:17 Urine Urobilinogen Negative mg/dL (0.2-1.0) 12/18/17 18:17 Ur Leukocyte Esterase Negative (NEGATIVE) 12/18/17 18:17 RPR Titer Nonreactive (NONREACTIVE) 12/19/17 06:00 Assessment: 12/20/17 11:22 WITHDRAWAL SYMPTOM Plan: CONTINUE DETOX
[2017-12-20] MEDS: chlordiazePOXIDE 5 MG CAPSULE PO SCH ×2 (18:03→22:32)
[2017-12-20] MEDS: ZOLPIDEM TARTRATE 5 MG TABLET PO PRN (22:32)
[2017-12-20] MEDS: THIAMINE HCL 100 MG TABLET (FP) PO SCH (22:32)
[2017-12-21] MEDS: chlordiazePOXIDE 5 MG CAPSULE PO SCH ×2 (06:01→10:13)
[2017-12-21] MEDS: PRENATAL VITAMINS W/ FOLIC ACID TABLET (FP) PO SCH (10:13)
[2017-12-21] MEDS: FLUOCINONIDE 0.05% TOP OINT (15 GM TUBE) TP SCH ×2 (10:13→22:15)
[2017-12-21] MEDS: SULFAMETHOXAZOLE/TRIMETHOPRIM 800MG/160MG D.S. TABLET PO SCH (10:13)
--- NOTE | 2017-12-21 12:32 | PN ---
[facility] Progress Note (SOAP) Subjective: ALERT,INTERRUPTED SLEEP, Objective: 12/21/17 12:31 Vital Signs Temperature 97.7 F 12/21/17 09:24 Pulse Rate 88 12/21/17 09:24 Respiratory Rate 20 12/21/17 09:24 Blood Pressure 149/84 12/21/17 09:24 O2 Sat by Pulse Oximetry (%) Assessment: 12/21/17 12:31 WITHDRAWAL SYMPTOM Plan: CONTINUE DETOX
[2017-12-21] MEDS: chlordiazePOXIDE HCL 10 MG CAPSULE PO SCH ×2 (17:36→22:15)
[2017-12-21] MEDS: THIAMINE HCL 100 MG TABLET (FP) PO SCH (22:15)
[2017-12-21] MEDS: ZOLPIDEM TARTRATE 5 MG TABLET PO PRN (22:17)
[2017-12-22] MEDS: chlordiazePOXIDE HCL 10 MG CAPSULE PO SCH (05:47)
--- NOTE | 2017-12-22 08:37 | PN ---
S Progress Note (SOAP) Subjective: ALERT,NO COMPLAINT Objective: 12/22/17 08:36 Vital Signs Temperature 98.1 F 12/22/17 06:18 Pulse Rate 83 12/22/17 06:18 Respiratory Rate 18 12/22/17 06:30 Blood Pressure 117/77 12/22/17 06:18 O2 Sat by Pulse Oximetry (%) Assessment: 12/22/17 08:36 DETOX COMPLETED,NO WITHDRAWAL SYMPTOM Plan: DISCHARGE TODAY,FOLLOW UP WITH AFTER CARE PROGRAM ARRANGEMENT
--- NOTE | 2017-12-22 08:42 | DS ---
[facility] Detox Discharge Summary Admission Date: 12/18/17 Discharge Date: 12/22/17 - History Present History: Alcohol Dependence, Cocaine Dependence Additional Comments: FOLLOW UP WITH AFTER CARE PROGRAM ARRANGEMENT Pertinent Past History: HIV ANXIETY AND DEPRESSION - Physical Exam Results Vital Signs: Vital Signs Temperature 98.1 F 12/22/17 06:18 Pulse Rate 83 12/22/17 06:18 Respiratory Rate 18 12/22/17 06:30 Blood Pressure 117/77 12/22/17 06:18 O2 Sat by Pulse Oximetry (%) Pertinent Admission Physical Exam Findings: WITHDRAWAL SIGNS AND SYMPTOM - Treatment Hospital Course: Detox Protocol Followed, Detoxed Safely, Responded well, Discharged Condition Good Patient has Accepted a Rehab Referral to: [facility] - Medication Discharge Medications: Ambulatory Orders Abacavir/Dolutegravir/Lamivudi [Triumeq Tablet] 1 each PO DAILY 05/29/17 Sulfamethoxazole/Trimethoprim [Bactrim DS -] 1 each PO DAILY tablet 06/02/17 - Diagnosis (1) Alcohol dependence with uncomplicated withdrawal Current Visit: Yes Status: Acute (2) Cocaine dependence Current Visit: Yes Status: Chronic Qualifiers: Substance use status: uncomplicated Qualified Code(s): F14.20 - Cocaine dependence, uncomplicated (3) Weight loss Current Visit: No Status: Acute (4) HIV (human immunodeficiency virus infection) Current Visit: No Status: Chronic (5) Anxiety Current Visit: Yes Status: Acute (6) Substance-induced sleep disorder Current Visit: Yes Status: Acute - AMA Did Patient Leave Against Medical Advice: No
[2017-12-22 09:42] VITALS: BP 151/90; PULSE 102; TEMP 97.9
== END 2017-12-22 09:10 | disposition home or self-care (01) | DRG 897 ==
LOC: YASAS 12:26 → Y6N 17:53
PROVIDERS: ADMIT Surgery; ATTEND Surgery
PROC: HZ2ZZZZ Detoxification Services for Substance Abuse Treatment (ICD-10-PCS; principal; 2017-12-18)
DX: F10.230 Alcohol dependence with withdrawal, uncomplicated (principal); F14.20 Cocaine dependence, uncomplicated; F19.282 Other psychoactive substance dependence with psychoactive substance-induced sleep disorder; F41.9 Anxiety disorder, unspecified; Z21 Asymptomatic human immunodeficiency virus [HIV] infection status; R63.4 Abnormal weight loss; Z68.27 Body mass index [BMI] 27.0-27.9, adult
CPT/HCPCS: 36415; 80053; 81003; 85027; 86593; 93005; 93010

== ENCOUNTER 2018-10-14 11:30 | Inpatient (IN) | payer OTHER ==
[2018-10-14 13:40] VITALS: BMI 26.5
--- NOTE | 2018-10-14 14:34 | HP ---
CIWA Score Nausea/Vomitin Muscle Tremors: 2 Anxiety: 2 Agitation: 2 Paroxysmal Sweats: 1-Minimal Palms Moist Orientation: 0-Oriented Tacttile Disturbances: 1-Very Mild Itch/Numbness Auditory Disturbances: 1-Very Mild Visual Disturbances: 0-None Headache: 2-Mild CIWA-Ar Total Score: 13 - Admission Criteria OASAS Guidelines: Admission for Medically Managed Detox: Requires at least one of the followin. CIWA greater than 12 2. Seizures within the past 24 hours 3. Delirium tremens within the past 24 hours 4. Hallucinations within the past 24 hours 5. Acute intervention needed for co occurring medical disorder 6. Acute intervention needed for co occurring psychiatric disorder 7. Severe withdrawal that cannot be handled at a lower level of care (continued vomiting, continued diarrhea, abnormal vital signs) requiring intravenous medication and/or fluids 8. Patient presents the following: CIWA greater than 12 Admission Criteria Met: Admission criteria met Admission ROS S - [facility] Chief Complaint: i need help to stop drinking alcohol and cocaine Allergies/Adverse Reactions: Allergies Allergy/AdvReac Type Severity Reaction Status Date / Time Fish Containing Products Allergy Severe Hives Verified 10/14/18 16:46 No Known Drug Allergies Allergy Verified 10/14/18 16:46 History of Present Illness: this 58 years male with alcohol and cocaine dependence seeking detox,withdrawal symptom, multiple admissions but keep relapsing last treatment 12/18/17 to hiv since 1999 weight loss longest sobriety 3 moths - Ebola screening Have you traveled outside of the country in the last 21 days: No (N) Have you had contact with anyone from an Ebola affected area: No Have you been sick,other than usual withdrawal symptoms: No Do you have a fever: No - Review of Systems Constitutional: Loss of Appetite, Malaise, Night Sweats, Changes in sleep, Weakness, Unintentional Wgt. Loss EENT: reports: Nose Congestion Respiratory: reports: No Symptoms reported Cardiac: reports: No Symptoms Reported GI: reports: Nausea, Indigestion, Abdominal cramping : reports: No Symptoms Reported Musculoskeletal: reports: Back Pain, Muscle Pain Integumentary: reports: Dryness Neuro: reports: Headache, Tremors Endocrine: reports: No Symptoms Reported Hematology: reports: No Symptoms Reported, Other Psychiatric: reports: No Sypmtoms Reported, Judgement Intact, Mood/Affect Appropiate, Orientated x3 Other Systems: Reviewed and Negative Patient History - Patient Medical History Hx Anemia: No Hx Asthma: No Hx Chronic Obstructive Pulmonary Disease (COPD): No Hx Cancer: No Hx Cardiac Disorders: No Hx Congestive Heart Failure: No Hx Hypertension: No Hx Hypercholesterolemia: No Hx Pacemaker: No HX Cerebrovascular Accident: No Hx Seizures: No Hx Dementia: No Hx Diabetes: No Hx Gastrointestinal Disorders: No Hx Liver Disease: No Hx Genitourinary Disorders: No Hx Sexually Transmitted Disorders: No Hx Renal Disease (ESRD): No Hx Thyroid Disease: No Hx Human Immunodeficiency Virus (HIV): Yes (since 1999 ) Hx Hepatitis C: No Hx Depression: Yes Hx Suicide Attempt: No Hx Bipolar Disorder: No Hx Schizophrenia: No Other Medical History: no sucidal,no homicidal - Patient Surgical History Past Surgical History: No Hx Neurologic Surgery: No Hx Cataract Extraction: No Hx Cardiac Surgery: No Hx Lung Surgery: No Hx Breast Surgery: No Hx Breast Biopsy: No Hx Abdominal Surgery: No Hx Appendectomy: No Hx Cholecystectomy: No Hx Genitourinary Surgery: No Hx Section: No Hx Orthopedic Surgery: No Anesthesia Reaction: No - PPD History Previous Implant?: Yes Documented Results: Negative w/proof Date: 12/20/17 Results: 0 mm PPD to be Administered?: Yes - Smoking Cessation Smoking history: Never smoked Have you smoked in the past 12 months: No Aproximately how many cigarettes per day: 0 Cigars Per Day: 0 Hx Chewing Tobacco Use: No - Substance & Tx. History Hx Alcohol Use: Yes Hx Substance Use: Yes Substance Use Type: Alcohol, Cocaine Hx Substance Use Treatment: Yes ([facility] 06/15/17 to 06/20/17) - Substances Abused Alcohol Route: Oral Frequency: Daily Amount used: 1 pint of liquor/2 of 22 ozs Age of first use: 22 Date of Last Use: 10/14/18 Cocaine Route: Inhalation Frequency: 1-2 times per week Amount used: 200$ Age of first use: 20 Date of Last Use: 10/13/18 Family Disease History - Family Disease History Family Disease History: Other: Father (), Mother (), Brother ( NO CONTACT), Sister (NO CONTACT) Admission Physical Exam [facility] - Vital Signs Vital Signs: Vital Signs - 24 hr 10/14/18 13:38 Temperature 97.9 F Pulse Rate 92 H Respiratory 18 Rate Blood Pressure 136/84 - Physical General Appearance: Yes: Moderate Distress, Tremorous, Sweating, Anxious HEENTM: Yes: EOMI, Normal ENT Inspection, JUDAH, Pharynx Normal Respiratory: Yes: Within Normal Limits, Lungs Clear, Normal Breath Sounds Neck: Yes: Within Normal Limits, Supple, Trachea in good position Breast: Yes: Within Normal Limits Cardiology: Yes: Within Normal Limits, Regular Rhythm, Regular Rate, S1, S2 Abdominal: Yes: Within Normal Limits, Normal Bowel Sounds, Non Tender, Soft Genitourinary: Yes: Within Normal Limits Back: Yes: Muscle Spasm Extremities: Yes: Tremors Neurological: Yes: water operator II-XII NML intact, Fully Oriented, Alert, Motor Strength 5/5 Integumentary: Yes: Dry Lymphatic: Yes: Within Normal Limits - Diagnostic (1) Alcohol dependence with uncomplicated withdrawal Current Visit: No Status: Acute (2) Weight loss Current Visit: No Status: Acute (3) Cocaine dependence Current Visit: No Status: Chronic Qualifiers: Substance use status: uncomplicated Qualified Code(s): F14.20 - Cocaine dependence, uncomplicated (4) HIV (human immunodeficiency virus infection) Current Visit: No Status: Chronic Cleared for Admission [facility] - Detox or Rehab [facility] Level of Care: Medically Managed Detox Regimen/Protocol: Librium [facility] Breath Alcohol Content Breath Alcohol Content: 0.062 Urine Drug Screen - Results Drug Screen Negative: No Urine Drug Screen Results: ORAL-Cocaine Inpatient Rehab Admission - Rehab Decision to Admit Inpatient rehab admission?: No
[2018-10-14] MEDS ORDERED: MAGNESIUM CITRATE 300 ML BOTTLE PO PRN (14:47)
[2018-10-14] MEDS ORDERED: MENTHOL/PHENOL 1 EACH UD MM PRN (14:47)
[2018-10-14] MEDS ORDERED: LOPERAMIDE HCL 2 MG CAPSULE PO PRN (14:47)
[2018-10-14] MEDS ORDERED: IBUPROFEN 400 MG TABLET (FP) PO PRN (14:47)
[2018-10-14] MEDS ORDERED: P-EPHED 60MG/TRIPROLIDI 2.5MG TABLET PO PRN (14:47)
[2018-10-14] MEDS ORDERED: MAGNESIUM HYDROX 2400MG/30ML ORAL SUSPENSION 30 ML CUP PO PRN (14:47)
[2018-10-14] MEDS ORDERED: ACETAMINOPHEN 325 MG TABLET (FP) PO PRN (14:47)
[2018-10-14] MEDS ORDERED: MAG HYDROX/AL HYDROX/SIMETH 30 ML UNIT-DOSE CUP PO PRN (14:47)
[2018-10-14] MEDS ORDERED: chlordiazePOXIDE HCL 25 MG CAPSULE PO PRN (14:47)
[2018-10-14] MEDS: chlordiazePOXIDE HCL 25 MG CAPSULE PO SCH ×2 (18:08→22:34)
[2018-10-14] MEDS ORDERED: MELATONIN 5 MG TABLETS PO PRN (22:00)
[2018-10-14] MEDS: THIAMINE HCL 100 MG TABLET (FP) PO SCH (22:34)
[2018-10-15] MEDS: chlordiazePOXIDE HCL 25 MG CAPSULE PO SCH ×4 (05:34→22:09)
[2018-10-15 09:58] LABS: ALK PHOS 74 U/L (45-117); ANION GAP 7 MMOL/L (8-16); BILIRUBIN,TOTAL 0.3 mg/dL (0.2-1); BLOOD UREA NITROGEN 19 mg/dL (7-18); CALCIUM 9.2 mg/dL (8.5-10.1); CHLORIDE 106 mmol/L (98-107); CO2 27 mmol/L (21-32); CREATININE 1.3 mg/dL (0.55-1.3); GLUCOSE,RANDOM 82 mg/dL (74-106); POTASSIUM 3.7 mmol/L (3.5-5.1); SGOT/AST 13 U/L (15-37); SGPT/ALT 16 U/L (13-61); SODIUM 140 mmol/L (136-145); TOT PROT 6.8 g/dl (6.4-8.2)
[2018-10-15] MEDS: PRENATAL VITAMINS W/ FOLIC ACID TABLET (FP) PO SCH (10:12)
[2018-10-15 10:31] LABS: HEMATOCRIT 35.8 % (35.4-49); HEMOGLOBIN 12.3 GM/dL (11.7-16.9); MCH 30.2 pg (25.7-33.7); MCHC 34.5 g/dl (32.0-35.9); MEAN CELL VOLUME 87.5 fl (80-96); MEAN PLT VOLUME 8.5 fl (7.5-11.1); PLATELET COUNT 255 K/MM3 (134-434); RBC 4.09 M/mm3 (4.00-5.60); RDW 12.5 % (11.9-15.9)
[2018-10-15] MEDS: guaiFENesin/D-METHORPHAN HB 10 ML UNIT-DOSE CUPS PO PRN ×2 (13:31→20:12)
--- NOTE | 2018-10-15 14:09 | PN ---
S CIWA - CIWA Score Nausea/Vomitin-Mild Nausea/No Vomiting Muscle Tremors: 3 Anxiety: 1-Mildly Anxious Agitation: 1-Slight > Activity Paroxysmal Sweats: 1-Minimal Palms Moist Orientation: 1-Uncertain about Date Tacttile Disturbances: 0-None Auditory Disturbances: 0-None Visual Disturbances: 0-None Headache: 1-Very Mild CIWA-Ar Total Score: 9 S Progress Note (SOAP) Subjective: tremor sweating restlessness patient reported that he is adherence with his antivirous medication HIV but finished 30 days supply lyric writer called his pharmacy at [phone] obtained his infectious disease specialist at [phone] Dr. 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 Objective: 10/15/18 14:12 Vital Signs Temperature 97.2 F L 10/15/18 13:46 Pulse Rate 94 H 10/15/18 13:46 Respiratory Rate 18 10/15/18 13:46 Blood Pressure 139/91 10/15/18 13:46 O2 Sat by Pulse Oximetry (%) Laboratory Last Values WBC 3.0 K/mm3 (4.0-10.0) L 10/15/18 07:00 RBC 4.09 M/mm3 (4.00-5.60) 10/15/18 07:00 Hgb 12.3 GM/dL (11.7-16.9) 10/15/18 07:00 Hct 35.8 % (35.4-49) 10/15/18 07:00 MCV 87.5 fl (80-96) 10/15/18 07:00 MCH 30.2 pg (25.7-33.7) 10/15/18 07:00 MCHC 34.5 g/dl (32.0-35.9) 10/15/18 07:00 RDW 12.5 % (11.9-15.9) 10/15/18 07:00 Plt Count 255 K/MM3 (134-434) 10/15/18 07:00 MPV 8.5 fl (7.5-11.1) 10/15/18 07:00 Sodium 140 mmol/L (136-145) 10/15/18 07:00 Potassium 3.7 mmol/L (3.5-5.1) 10/15/18 07:00 Chloride 106 mmol/L (98-107) 10/15/18 07:00 Carbon Dioxide 27 mmol/L (21-32) 10/15/18 07:00 Anion Gap 7 MMOL/L (8-16) L 10/15/18 07:00 BUN 19 mg/dL (7-18) H 10/15/18 07:00 Creatinine 1.3 mg/dL (0.55-1.3) 10/15/18 07:00 Creat Clearance w eGFR 57.10 (>60) 10/15/18 07:00 Random Glucose 82 mg/dL (74-106) 10/15/18 07:00 Calcium 9.2 mg/dL (8.5-10.1) 10/15/18 07:00 Total Bilirubin 0.3 mg/dL (0.2-1) 10/15/18 07:00 AST 13 U/L (15-37) L 10/15/18 07:00 ALT 16 U/L (13-61) 10/15/18 07:00 Alkaline Phosphatase 74 U/L (45-117) 10/15/18 07:00 Total Protein 6.8 g/dl (6.4-8.2) 10/15/18 07:00 Albumin 3.0 g/dl (3.4-5.0) L 10/15/18 07:00 RPR Titer Nonreactive (NONREACTIVE) 10/15/18 07:00 lab noted Assessment: 10/15/18 14:16 alcohol withdrawal sx HIV Plan: continue detox patient reported that he is taking triumeq daily external medication indicated that he is taking prezcobix last filled 09/14/18 the lyric writer is waiting for hiv specialist sending prezcobix prescription to [facility]
[2018-10-15] MEDS: THIAMINE HCL 100 MG TABLET (FP) PO SCH (22:09)
[2018-10-15] MEDS: hydrOXYzine PAMOATE 50 MG CAPSULE (FP) PO PRN (22:21)
[2018-10-16] MEDS: chlordiazePOXIDE HCL 25 MG CAPSULE PO SCH ×2 (05:51→10:19)
[2018-10-16] MEDS: PRENATAL VITAMINS W/ FOLIC ACID TABLET (FP) PO SCH (10:19)
[2018-10-16] MEDS: guaiFENesin/D-METHORPHAN HB 10 ML UNIT-DOSE CUPS PO PRN ×2 (10:45→22:46)
--- NOTE | 2018-10-16 15:10 | PN ---
S CIWA - CIWA Score Nausea/Vomitin-No Nausea/No Vomiting Muscle Tremors: 2 Anxiety: 1-Mildly Anxious Agitation: 2 Paroxysmal Sweats: 1-Minimal Palms Moist Orientation: 1-Uncertain about Date Tacttile Disturbances: 0-None Auditory Disturbances: 0-None Visual Disturbances: 0-None Headache: 0-None Present CIWA-Ar Total Score: 7 [facility] Progress Note (SOAP) Subjective: headaches tremor trouble resting at night sweating Objective: 10/16/18 15:11 Vital Signs Temperature 99.8 F H 10/16/18 14:05 Pulse Rate 116 H 10/16/18 14:05 Respiratory Rate 18 10/16/18 14:05 Blood Pressure 136/84 10/16/18 14:05 O2 Sat by Pulse Oximetry (%) Laboratory Last Values WBC 3.0 K/mm3 (4.0-10.0) L 10/15/18 07:00 RBC 4.09 M/mm3 (4.00-5.60) 10/15/18 07:00 Hgb 12.3 GM/dL (11.7-16.9) 10/15/18 07:00 Hct 35.8 % (35.4-49) 10/15/18 07:00 MCV 87.5 fl (80-96) 10/15/18 07:00 MCH 30.2 pg (25.7-33.7) 10/15/18 07:00 MCHC 34.5 g/dl (32.0-35.9) 10/15/18 07:00 RDW 12.5 % (11.9-15.9) 10/15/18 07:00 Plt Count 255 K/MM3 (134-434) 10/15/18 07:00 MPV 8.5 fl (7.5-11.1) 10/15/18 07:00 Sodium 140 mmol/L (136-145) 10/15/18 07:00 Potassium 3.7 mmol/L (3.5-5.1) 10/15/18 07:00 Chloride 106 mmol/L (98-107) 10/15/18 07:00 Carbon Dioxide 27 mmol/L (21-32) 10/15/18 07:00 Anion Gap 7 MMOL/L (8-16) L 10/15/18 07:00 BUN 19 mg/dL (7-18) H 10/15/18 07:00 Creatinine 1.3 mg/dL (0.55-1.3) 10/15/18 07:00 Creat Clearance w eGFR 57.10 (>60) 10/15/18 07:00 Random Glucose 82 mg/dL (74-106) 10/15/18 07:00 Calcium 9.2 mg/dL (8.5-10.1) 10/15/18 07:00 Total Bilirubin 0.3 mg/dL (0.2-1) 10/15/18 07:00 AST 13 U/L (15-37) L 10/15/18 07:00 ALT 16 U/L (13-61) 10/15/18 07:00 Alkaline Phosphatase 74 U/L (45-117) 10/15/18 07:00 Total Protein 6.8 g/dl (6.4-8.2) 10/15/18 07:00 Albumin 3.0 g/dl (3.4-5.0) L 10/15/18 07:00 RPR Titer Nonreactive (NONREACTIVE) 10/15/18 07:00 lab noted Assessment: 10/16/18 15:12 withdrawal sx Plan: continue detox
[2018-10-16] MEDS: chlordiazePOXIDE 5 MG CAPSULE PO SCH ×2 (17:16→22:45)
[2018-10-16] MEDS: hydrOXYzine PAMOATE 50 MG CAPSULE (FP) PO PRN (22:45)
[2018-10-16] MEDS: THIAMINE HCL 100 MG TABLET (FP) PO SCH (22:45)
[2018-10-17] MEDS: chlordiazePOXIDE 5 MG CAPSULE PO SCH ×2 (05:39→10:19)
[2018-10-17 09:39] VITALS: TEMP 97
[2018-10-17] MEDS: PRENATAL VITAMINS W/ FOLIC ACID TABLET (FP) PO SCH (10:19)
[2018-10-17] MEDS: guaiFENesin/D-METHORPHAN HB 10 ML UNIT-DOSE CUPS PO PRN (10:31)
--- NOTE | 2018-10-17 11:38 | PN ---
S CIWA - CIWA Score Nausea/Vomitin-No Nausea/No Vomiting Muscle Tremors: 1-None Visible, but [place] Anxiety: 1-Mildly Anxious Agitation: 0-Normal Activity Paroxysmal Sweats: 1-Minimal Palms Moist Orientation: 1-Uncertain about Date Tacttile Disturbances: 0-None Auditory Disturbances: 0-None Visual Disturbances: 0-None Headache: 1-Very Mild CIWA-Ar Total Score: 5 BHS Progress Note (SOAP) Subjective: feeling better less tremor mild sweating Objective: 10/17/18 11:37 Vital Signs Temperature 97 F L 10/17/18 09:38 Pulse Rate 90 10/17/18 09:38 Respiratory Rate 18 10/17/18 09:38 Blood Pressure 142/92 10/17/18 09:38 O2 Sat by Pulse Oximetry (%) Laboratory Last Values WBC 3.0 K/mm3 (4.0-10.0) L 10/15/18 07:00 RBC 4.09 M/mm3 (4.00-5.60) 10/15/18 07:00 Hgb 12.3 GM/dL (11.7-16.9) 10/15/18 07:00 Hct 35.8 % (35.4-49) 10/15/18 07:00 MCV 87.5 fl (80-96) 10/15/18 07:00 MCH 30.2 pg (25.7-33.7) 10/15/18 07:00 MCHC 34.5 g/dl (32.0-35.9) 10/15/18 07:00 RDW 12.5 % (11.9-15.9) 10/15/18 07:00 Plt Count 255 K/MM3 (134-434) 10/15/18 07:00 MPV 8.5 fl (7.5-11.1) 10/15/18 07:00 Sodium 140 mmol/L (136-145) 10/15/18 07:00 Potassium 3.7 mmol/L (3.5-5.1) 10/15/18 07:00 Chloride 106 mmol/L (98-107) 10/15/18 07:00 Carbon Dioxide 27 mmol/L (21-32) 10/15/18 07:00 Anion Gap 7 MMOL/L (8-16) L 10/15/18 07:00 BUN 19 mg/dL (7-18) H 10/15/18 07:00 Creatinine 1.3 mg/dL (0.55-1.3) 10/15/18 07:00 Creat Clearance w eGFR 57.10 (>60) 10/15/18 07:00 Random Glucose 82 mg/dL (74-106) 10/15/18 07:00 Calcium 9.2 mg/dL (8.5-10.1) 10/15/18 07:00 Total Bilirubin 0.3 mg/dL (0.2-1) 10/15/18 07:00 AST 13 U/L (15-37) L 10/15/18 07:00 ALT 16 U/L (13-61) 10/15/18 07:00 Alkaline Phosphatase 74 U/L (45-117) 10/15/18 07:00 Total Protein 6.8 g/dl (6.4-8.2) 10/15/18 07:00 Albumin 3.0 g/dl (3.4-5.0) L 10/15/18 07:00 RPR Titer Nonreactive (NONREACTIVE) 10/15/18 07:00 lab noted Assessment: 10/17/18 11:38 mild alcohol withdrawal sx Plan: continue detox
[2018-10-17 13:27] VITALS: BP 136/89; PULSE 106
--- NOTE | 2018-10-17 14:34 | DS ---
[facility] Detox Discharge Summary Admission Date: 10/14/18 Discharge Date: 10/17/18 - History Present History: Alcohol Dependence Additional Comments: 58 years old male admitted on 10/14/18 for alcohol withdrawal stabilization feeling better today preferred begin alcohol rehab today counselor [facility] - Physical Exam Results Vital Signs: Vital Signs Temperature 97 F L 10/17/18 13:25 Pulse Rate 106 H 10/17/18 13:25 Respiratory Rate 20 10/17/18 13:25 Blood Pressure 136/89 10/17/18 13:25 O2 Sat by Pulse Oximetry (%) Pertinent Admission Physical Exam Findings: alcohol withdrawal stabilization Laboratory Last Values WBC 3.0 K/mm3 (4.0-10.0) L 10/15/18 07:00 RBC 4.09 M/mm3 (4.00-5.60) 10/15/18 07:00 Hgb 12.3 GM/dL (11.7-16.9) 10/15/18 07:00 Hct 35.8 % (35.4-49) 10/15/18 07:00 MCV 87.5 fl (80-96) 10/15/18 07:00 MCH 30.2 pg (25.7-33.7) 10/15/18 07:00 MCHC 34.5 g/dl (32.0-35.9) 10/15/18 07:00 RDW 12.5 % (11.9-15.9) 10/15/18 07:00 Plt Count 255 K/MM3 (134-434) 10/15/18 07:00 MPV 8.5 fl (7.5-11.1) 10/15/18 07:00 Sodium 140 mmol/L (136-145) 10/15/18 07:00 Potassium 3.7 mmol/L (3.5-5.1) 10/15/18 07:00 Chloride 106 mmol/L (98-107) 10/15/18 07:00 Carbon Dioxide 27 mmol/L (21-32) 10/15/18 07:00 Anion Gap 7 MMOL/L (8-16) L 10/15/18 07:00 BUN 19 mg/dL (7-18) H 10/15/18 07:00 Creatinine 1.3 mg/dL (0.55-1.3) 10/15/18 07:00 Creat Clearance w eGFR 57.10 (>60) 10/15/18 07:00 Random Glucose 82 mg/dL (74-106) 10/15/18 07:00 Calcium 9.2 mg/dL (8.5-10.1) 10/15/18 07:00 Total Bilirubin 0.3 mg/dL (0.2-1) 10/15/18 07:00 AST 13 U/L (15-37) L 10/15/18 07:00 ALT 16 U/L (13-61) 10/15/18 07:00 Alkaline Phosphatase 74 U/L (45-117) 10/15/18 07:00 Total Protein 6.8 g/dl (6.4-8.2) 10/15/18 07:00 Albumin 3.0 g/dl (3.4-5.0) L 10/15/18 07:00 RPR Titer Nonreactive (NONREACTIVE) 10/15/18 07:00 lab noted - Treatment Hospital Course: Detox Protocol Followed, Detoxed Safely, Responded well, Discharged Condition Good, Rehab Referral Accepted Patient has Accepted a Rehab Referral to: [facility] - Medication Discharge Medications: Ambulatory Orders Abacavir/Dolutegravir/Lamivudi [Triumeq 600-50-300 mg Tablet] 1 each PO DAILY # 1 tablet 10/17/18 Sulfamethoxazole/Trimethoprim [Bactrim DS -] 1 each PO DAILY #30 tablet - Diagnosis (1) Alcohol dependence with uncomplicated withdrawal Current Visit: Yes Status: Acute (2) HIV (human immunodeficiency virus infection) Current Visit: Yes Status: Chronic Qualifiers: HIV symptom status: asymptomatic Qualified Code(s): Z21 - Asymptomatic human immunodeficiency virus [HIV] infection status - AMA Did Patient Leave Against Medical Advice: No
[2018-10-17] MEDS ORDERED: chlordiazePOXIDE HCL 10 MG CAPSULE PO SCH (17:00)
== END 2018-10-17 15:13 | disposition other institution (70) | DRG 897 ==
LOC: YASAS 11:30 → Y3N 16:48
PROVIDERS: ADMIT Surgery; ATTEND Surgery
PROC: HZ2ZZZZ Detoxification Services for Substance Abuse Treatment (ICD-10-PCS; principal; 2018-10-14)
DX: F10.230 Alcohol dependence with withdrawal, uncomplicated (principal); F14.20 Cocaine dependence, uncomplicated; Z21 Asymptomatic human immunodeficiency virus [HIV] infection status; Z91.013 Allergy to seafood
CPT/HCPCS: 36415; 80053; 85027; 86593

== ENCOUNTER 2018-10-17 15:33 | Inpatient (IN) | payer OTHER ==
--- NOTE | 2018-10-17 14:35 | HP ---
[facility] Rehab Assess/Revision - Admission History Admitted to Rehab from: Sangeetha Krishnan Date of Admission to Rehab: 10/17/18 - Findings Detox History & Physical reviewed: Yes Concur with findings: Yes Comments/Additional Findings: transferred from detox to rehab admission as pre protocol Inpatient Rehab Admission - Rehab Decision to Admit Inpatient rehab admission?: Yes - Initial Determination Are CD services needed?: Yes Free of communicable disease: Yes Not in need of hospitalization: Yes - Rehab Admission Criteria Previous failed treatment: Yes Poor recovery environment: Yes Comorbidities: Yes Lacks judgement: No Patient is meeting Inpatient Rehab admission criteria:: Yes
[~2018-10-17 15:33] MED LIST: ACETAMINOPHEN 325 MG TABLET (FP) PO PRN; IBUPROFEN 400 MG TABLET (FP) PO PRN; LOPERAMIDE HCL 2 MG CAPSULE PO PRN; MAG HYDROX/AL HYDROX/SIMETH 30 ML UNIT-DOSE CUP PO PRN; MAGNESIUM CITRATE 300 ML BOTTLE PO PRN; MAGNESIUM HYDROX 2400MG/30ML ORAL SUSPENSION 30 ML CUP PO PRN; MENTHOL/PHENOL 1 EACH UD MM PRN; P-EPHED 60MG/TRIPROLIDI 2.5MG TABLET PO PRN
[2018-10-17] MEDS: THIAMINE HCL 100 MG TABLET (FP) PO SCH (21:43)
[2018-10-17] MEDS: MELATONIN 5 MG TABLETS PO PRN (21:44)
[2018-10-18] MEDS: PRENATAL VITAMINS W/ FOLIC ACID TABLET (FP) PO SCH (10:38)
[2018-10-18] MEDS: SULFAMETHOXAZOLE/TRIMETHOPRIM 800MG/160MG D.S. TABLET PO SCH (10:39)
[2018-10-18] MEDS: guaiFENesin 200 MG/10 ML 10 ML UNIT-DOSE CUPS PO PRN ×2 (10:40→17:50)
--- NOTE | 2018-10-18 12:55 | PN ---
[facility] Progress Note Note: Mr Parra is a 58 year old man who is living with HIV and AIDS. He receives care from [facility] in [place]. He has a history of intermittent adherence to his HIV regimen, He was undetectable from 08/2017 to 06/2018, then he stopped his medications when he started to use crack-cocaine. His CD4 count is 77. His PCP, Yessi Pitts NP states that he is on a regimen of Prezcobix and Bicktarvy because of his extensive mutation profile and when he was on this regimen, he was undetectable. He is also on Azithromycin 1200 mg once a week and Bactrim DS daily prophlaxis. Ms. Gisselle NP has renewed his medications at his pharmacy and they will be sent to [facility] for the patient. Discussed with the patient the need to be adherent to his medications and take them as directed while here and when he is discharged. Also encouraged him to see his provider upon discharge.
[2018-10-18] MEDS: THIAMINE HCL 100 MG TABLET (FP) PO SCH (21:40)
[2018-10-18] MEDS: MELATONIN 5 MG TABLETS PO PRN (21:40)
[2018-10-19] MEDS: PRENATAL VITAMINS W/ FOLIC ACID TABLET (FP) PO SCH (10:55)
[2018-10-19] MEDS: SULFAMETHOXAZOLE/TRIMETHOPRIM 800MG/160MG D.S. TABLET PO SCH (10:55)
[2018-10-19] MEDS: guaiFENesin 200 MG/10 ML 10 ML UNIT-DOSE CUPS PO PRN (23:48)
[2018-10-19] MEDS: MELATONIN 5 MG TABLETS PO PRN (23:48)
[2018-10-19] MEDS: THIAMINE HCL 100 MG TABLET (FP) PO SCH (23:51)
[2018-10-20] MEDS: PRENATAL VITAMINS W/ FOLIC ACID TABLET (FP) PO SCH (09:53)
[2018-10-20] MEDS: SULFAMETHOXAZOLE/TRIMETHOPRIM 800MG/160MG D.S. TABLET PO SCH (09:53)
[2018-10-20 12:36] LABS: URINE APPEARANCE CLEAR; URINE BILIRUBIN NEGATIVE (<2.0 mg/dL); URINE COLOR LTYELLOW; URINE GLUCOSE (UA) NEGATIVE (NEGATIVE); URINE KETONE NEGATIVE (NEGATIVE); URINE LEUK ESTERASE NEGATIVE (NEGATIVE); URINE NITRITE NEGATIVE (NEGATIVE); URINE PROTEIN NEGATIVE (NEGATIVE); URINE UROBILINOGEN NEGATIVE mg/dL (0.2-1.0)
[2018-10-20] MEDS: THIAMINE HCL 100 MG TABLET (FP) PO SCH (21:20)
[2018-10-20] MEDS: MELATONIN 5 MG TABLETS PO PRN (21:21)
[2018-10-21] MEDS: SULFAMETHOXAZOLE/TRIMETHOPRIM 800MG/160MG D.S. TABLET PO SCH (09:52)
[2018-10-21] MEDS: PRENATAL VITAMINS W/ FOLIC ACID TABLET (FP) PO SCH (09:52)
[2018-10-21] MEDS: THIAMINE HCL 100 MG TABLET (FP) PO SCH (21:28)
[2018-10-21] MEDS: MELATONIN 5 MG TABLETS PO PRN (21:28)
[2018-10-22] MEDS: PRENATAL VITAMINS W/ FOLIC ACID TABLET (FP) PO SCH (10:41)
[2018-10-22] MEDS: SULFAMETHOXAZOLE/TRIMETHOPRIM 800MG/160MG D.S. TABLET PO SCH (10:41)
[2018-10-22] MEDS: THIAMINE HCL 100 MG TABLET (FP) PO SCH (21:22)
[2018-10-22] MEDS: MELATONIN 5 MG TABLETS PO PRN (21:22)
[2018-10-23] MEDS: SULFAMETHOXAZOLE/TRIMETHOPRIM 800MG/160MG D.S. TABLET PO SCH (10:12)
[2018-10-23] MEDS: PRENATAL VITAMINS W/ FOLIC ACID TABLET (FP) PO SCH (10:12)
[2018-10-23] MEDS: THIAMINE HCL 100 MG TABLET (FP) PO SCH (21:41)
[2018-10-23] MEDS: MELATONIN 5 MG TABLETS PO PRN (21:41)
[2018-10-24] MEDS: PRENATAL VITAMINS W/ FOLIC ACID TABLET (FP) PO SCH (10:34)
[2018-10-24] MEDS: SULFAMETHOXAZOLE/TRIMETHOPRIM 800MG/160MG D.S. TABLET PO SCH (10:35)
[2018-10-24] MEDS: MELATONIN 5 MG TABLETS PO PRN (21:17)
[2018-10-24] MEDS: THIAMINE HCL 100 MG TABLET (FP) PO SCH (21:17)
[2018-10-25] MEDS ORDERED: PT OWN MED DRAWER 7, Y5N ONE (09:29)
[2018-10-25] MEDS: SULFAMETHOXAZOLE/TRIMETHOPRIM 800MG/160MG D.S. TABLET PO SCH (10:16)
[2018-10-25] MEDS: PRENATAL VITAMINS W/ FOLIC ACID TABLET (FP) PO SCH (10:16)
[2018-10-25] MEDS: THIAMINE HCL 100 MG TABLET (FP) PO SCH (21:37)
[2018-10-25] MEDS: MELATONIN 5 MG TABLETS PO PRN (21:37)
[2018-10-26] MEDS ORDERED: AZITHROMYCIN 600 MG TABLET PO SCH ×2 (10:00→15:08)
[2018-10-26] MEDS: SULFAMETHOXAZOLE/TRIMETHOPRIM 800MG/160MG D.S. TABLET PO SCH (10:08)
[2018-10-26] MEDS: PRENATAL VITAMINS W/ FOLIC ACID TABLET (FP) PO SCH (10:08)
[2018-10-26] MEDS: BICTEGRAV/EMTRICIT/TENOFOV (BIKTARVY) 50-200-25 MG TABLET PO SCH (15:11)
[2018-10-26] MEDS: DARUNAVIR 800 MG/COBICISTAT 150MG TABLET PO SCH (15:12)
[2018-10-26] MEDS: AZITHROMYCIN 600 MG TABLET PO SCH (16:11)
[2018-10-26] MEDS: THIAMINE HCL 100 MG TABLET (FP) PO SCH (21:22)
[2018-10-26] MEDS: MELATONIN 5 MG TABLETS PO PRN (21:22)
[2018-10-27] MEDS: BICTEGRAV/EMTRICIT/TENOFOV (BIKTARVY) 50-200-25 MG TABLET PO SCH (07:37)
[2018-10-27] MEDS: PRENATAL VITAMINS W/ FOLIC ACID TABLET (FP) PO SCH (10:23)
[2018-10-27] MEDS: DARUNAVIR 800 MG/COBICISTAT 150MG TABLET PO SCH (10:23)
[2018-10-27] MEDS: SULFAMETHOXAZOLE/TRIMETHOPRIM 800MG/160MG D.S. TABLET PO SCH (10:23)
[2018-10-27] MEDS: MELATONIN 5 MG TABLETS PO PRN (21:51)
[2018-10-27] MEDS: THIAMINE HCL 100 MG TABLET (FP) PO SCH (21:51)
[2018-10-28] MEDS: BICTEGRAV/EMTRICIT/TENOFOV (BIKTARVY) 50-200-25 MG TABLET PO SCH (07:36)
[2018-10-28] MEDS: PRENATAL VITAMINS W/ FOLIC ACID TABLET (FP) PO SCH (10:04)
[2018-10-28] MEDS: SULFAMETHOXAZOLE/TRIMETHOPRIM 800MG/160MG D.S. TABLET PO SCH (10:04)
[2018-10-28] MEDS: DARUNAVIR 800 MG/COBICISTAT 150MG TABLET PO SCH (10:05)
[2018-10-28] MEDS: THIAMINE HCL 100 MG TABLET (FP) PO SCH (22:32)
[2018-10-28] MEDS: MELATONIN 5 MG TABLETS PO PRN (22:32)
[2018-10-29] MEDS: BICTEGRAV/EMTRICIT/TENOFOV (BIKTARVY) 50-200-25 MG TABLET PO SCH (07:42)
[2018-10-29] MEDS: PRENATAL VITAMINS W/ FOLIC ACID TABLET (FP) PO SCH (10:40)
[2018-10-29] MEDS: SULFAMETHOXAZOLE/TRIMETHOPRIM 800MG/160MG D.S. TABLET PO SCH (10:40)
[2018-10-29] MEDS: DARUNAVIR 800 MG/COBICISTAT 150MG TABLET PO SCH (10:40)
[2018-10-29] MEDS: MELATONIN 5 MG TABLETS PO PRN (21:44)
[2018-10-29] MEDS: THIAMINE HCL 100 MG TABLET (FP) PO SCH (21:44)
[2018-10-30] MEDS: BICTEGRAV/EMTRICIT/TENOFOV (BIKTARVY) 50-200-25 MG TABLET PO SCH (08:20)
[2018-10-30] MEDS: PRENATAL VITAMINS W/ FOLIC ACID TABLET (FP) PO SCH (10:42)
[2018-10-30] MEDS: DARUNAVIR 800 MG/COBICISTAT 150MG TABLET PO SCH (10:42)
[2018-10-30] MEDS: SULFAMETHOXAZOLE/TRIMETHOPRIM 800MG/160MG D.S. TABLET PO SCH (10:42)
[2018-10-30] MEDS: MELATONIN 5 MG TABLETS PO PRN (21:23)
[2018-10-30] MEDS: THIAMINE HCL 100 MG TABLET (FP) PO SCH (21:23)
[2018-10-31] MEDS: BICTEGRAV/EMTRICIT/TENOFOV (BIKTARVY) 50-200-25 MG TABLET PO SCH (07:07)
[2018-10-31] MEDS: PRENATAL VITAMINS W/ FOLIC ACID TABLET (FP) PO SCH (10:14)
[2018-10-31] MEDS: SULFAMETHOXAZOLE/TRIMETHOPRIM 800MG/160MG D.S. TABLET PO SCH (10:14)
[2018-10-31] MEDS: DARUNAVIR 800 MG/COBICISTAT 150MG TABLET PO SCH (10:14)
[2018-10-31] MEDS: MELATONIN 5 MG TABLETS PO PRN (21:40)
[2018-10-31] MEDS: THIAMINE HCL 100 MG TABLET (FP) PO SCH (21:40)
[2018-11-01] MEDS: BICTEGRAV/EMTRICIT/TENOFOV (BIKTARVY) 50-200-25 MG TABLET PO SCH (07:04)
[2018-11-01] MEDS: SULFAMETHOXAZOLE/TRIMETHOPRIM 800MG/160MG D.S. TABLET PO SCH (10:23)
[2018-11-01] MEDS: PRENATAL VITAMINS W/ FOLIC ACID TABLET (FP) PO SCH (10:23)
[2018-11-01] MEDS: DARUNAVIR 800 MG/COBICISTAT 150MG TABLET PO SCH (10:23)
[2018-11-01] MEDS: MELATONIN 5 MG TABLETS PO PRN (21:12)
[2018-11-01] MEDS: THIAMINE HCL 100 MG TABLET (FP) PO SCH (21:12)
[2018-11-02] MEDS: BICTEGRAV/EMTRICIT/TENOFOV (BIKTARVY) 50-200-25 MG TABLET PO SCH (07:13)
[2018-11-02] MEDS: SULFAMETHOXAZOLE/TRIMETHOPRIM 800MG/160MG D.S. TABLET PO SCH (10:02)
[2018-11-02] MEDS: PRENATAL VITAMINS W/ FOLIC ACID TABLET (FP) PO SCH (10:02)
[2018-11-02] MEDS: DARUNAVIR 800 MG/COBICISTAT 150MG TABLET PO SCH (10:02)
[2018-11-02] MEDS: AZITHROMYCIN 600 MG TABLET PO SCH (10:03)
[2018-11-02] MEDS: MELATONIN 5 MG TABLETS PO PRN (21:33)
[2018-11-02] MEDS: THIAMINE HCL 100 MG TABLET (FP) PO SCH (21:33)
[2018-11-03] MEDS: BICTEGRAV/EMTRICIT/TENOFOV (BIKTARVY) 50-200-25 MG TABLET PO SCH (07:46)
[2018-11-03] MEDS: DARUNAVIR 800 MG/COBICISTAT 150MG TABLET PO SCH (10:07)
[2018-11-03] MEDS: SULFAMETHOXAZOLE/TRIMETHOPRIM 800MG/160MG D.S. TABLET PO SCH (10:07)
[2018-11-03] MEDS: PRENATAL VITAMINS W/ FOLIC ACID TABLET (FP) PO SCH (10:07)
[2018-11-03] MEDS: THIAMINE HCL 100 MG TABLET (FP) PO SCH (21:34)
[2018-11-03] MEDS: MELATONIN 5 MG TABLETS PO PRN (21:34)
[2018-11-04] MEDS: BICTEGRAV/EMTRICIT/TENOFOV (BIKTARVY) 50-200-25 MG TABLET PO SCH (07:30)
[2018-11-04] MEDS: DARUNAVIR 800 MG/COBICISTAT 150MG TABLET PO SCH (09:51)
[2018-11-04] MEDS: SULFAMETHOXAZOLE/TRIMETHOPRIM 800MG/160MG D.S. TABLET PO SCH (09:51)
[2018-11-04] MEDS: PRENATAL VITAMINS W/ FOLIC ACID TABLET (FP) PO SCH (09:51)
[2018-11-04] MEDS: MELATONIN 5 MG TABLETS PO PRN (21:23)
[2018-11-04] MEDS: THIAMINE HCL 100 MG TABLET (FP) PO SCH (21:23)
[2018-11-05] MEDS: BICTEGRAV/EMTRICIT/TENOFOV (BIKTARVY) 50-200-25 MG TABLET PO SCH (08:03)
[2018-11-05] MEDS: PRENATAL VITAMINS W/ FOLIC ACID TABLET (FP) PO SCH (10:18)
[2018-11-05] MEDS: DARUNAVIR 800 MG/COBICISTAT 150MG TABLET PO SCH (10:19)
[2018-11-05] MEDS: SULFAMETHOXAZOLE/TRIMETHOPRIM 800MG/160MG D.S. TABLET PO SCH (10:19)
[2018-11-05] MEDS: MELATONIN 5 MG TABLETS PO PRN (21:04)
[2018-11-05] MEDS: THIAMINE HCL 100 MG TABLET (FP) PO SCH (21:04)
[2018-11-06] MEDS: BICTEGRAV/EMTRICIT/TENOFOV (BIKTARVY) 50-200-25 MG TABLET PO SCH (07:00)
[2018-11-06 07:16] VITALS: BP 139/83; PULSE 83; TEMP 98.2
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
[2018-11-06] MEDS ORDERED: PT OWN MED DRAWER 7, Y5N ONE (08:54)
== END 2018-11-06 08:56 | disposition home or self-care (01) | DRG 895 ==
LOC: YASAS 15:33 → Y3W 15:34
PROVIDERS: ADMIT Neuromusculoskeletal Medicine & OMM; ATTEND Neuromusculoskeletal Medicine & OMM
PROC: HZ42ZZZ Group Counseling for Substance Abuse Treatment, Cognitive-Behavioral (ICD-10-PCS; principal; 2018-10-17)
DX: F10.20 Alcohol dependence, uncomplicated (principal); F14.20 Cocaine dependence, uncomplicated; B20 Human immunodeficiency virus [HIV] disease; Z91.14 Patient's other noncompliance with medication regimen; Z91.013 Allergy to seafood
CPT/HCPCS: 81003

== ENCOUNTER 2019-02-23 14:41 | Inpatient (IN) | payer OTHER ==
[2019-02-23 18:05] VITALS: BMI 26.5
--- NOTE | 2019-02-23 19:37 | HP ---
CIWA Score Nausea/Vomitin Muscle Tremors: 2 Anxiety: 2 Agitation: 2 Paroxysmal Sweats: 2 Orientation: 0-Oriented Tacttile Disturbances: 2-Mild Itch/Numbness/Burn Auditory Disturbances: 0-None Visual Disturbances: 0-None Headache: 2-Mild CIWA-Ar Total Score: 14 - Admission Criteria OASAS Guidelines: Admission for Medically Managed Detox: Requires at least one of the followin. CIWA greater than 12 2. Seizures within the past 24 hours 3. Delirium tremens within the past 24 hours 4. Hallucinations within the past 24 hours 5. Acute intervention needed for co occurring medical disorder 6. Acute intervention needed for co occurring psychiatric disorder 7. Severe withdrawal that cannot be handled at a lower level of care (continued vomiting, continued diarrhea, abnormal vital signs) requiring intravenous medication and/or fluids 8. Patient presents the following: CIWA greater than 12 Admission Criteria Met: Admission criteria met Admission ROS [facility] Chief Complaint: I need detox from alcohol and I also need rehab Allergies/Adverse Reactions: Allergies Allergy/AdvReac Type Severity Reaction Status Date / Time Fish Containing Products Allergy Severe Hives Verified 02/23/19 17:55 No Known Drug Allergies Allergy Verified 10/14/18 16:46 tomatoe sauce Allergy Mild Hives Uncoded 02/23/19 17:57 History of Present Illness: Patient is a 59 years old male with alcohol and cocaine dependence seeking detox from withdrawal symptoms and possible rehabilitation. His last treatment was in October of this year. He denies seizure related to alcohol, has had blackouts, last episode was last year. Exam Limitations: No Limitations - Ebola screening Have you traveled outside of the country in the last 21 days: No (N) Have you had contact with anyone from an Ebola affected area: No Have you been sick,other than usual withdrawal symptoms: No Do you have a fever: No - Review of Systems Constitutional: Chills, Changes in sleep EENT: reports: Blurred Vision Respiratory: reports: No Symptoms reported Cardiac: reports: No Symptoms Reported GI: reports: Poor Fluid Intake, Abdominal cramping : reports: No Symptoms Reported Musculoskeletal: reports: Back Pain, Joint Pain, Muscle Pain Integumentary: reports: No Symptoms Reported Neuro: reports: Headache, Numbness, Tremors Endocrine: reports: No Symptoms Reported Hematology: reports: No Symptoms Reported Psychiatric: reports: Depressed Other Systems: Reviewed and Negative Patient History - Patient Medical History Hx Anemia: No Hx Asthma: No Hx Chronic Obstructive Pulmonary Disease (COPD): No Hx Cancer: No Hx Cardiac Disorders: No Hx Congestive Heart Failure: No Hx Hypertension: No Hx Hypercholesterolemia: No Hx Pacemaker: No HX Cerebrovascular Accident: No Hx Seizures: No Hx Dementia: No Hx Diabetes: No Hx Gastrointestinal Disorders: No Hx Liver Disease: No Hx Genitourinary Disorders: No Hx Sexually Transmitted Disorders: No Hx Renal Disease (ESRD): No Hx Thyroid Disease: No Hx Human Immunodeficiency Virus (HIV): Yes (since 1999 ) Hx Hepatitis C: No Hx Depression: Yes Hx Suicide Attempt: No Hx Bipolar Disorder: No Hx Schizophrenia: No - Patient Surgical History Past Surgical History: No - PPD History Previous Implant?: Yes Documented Results: Negative w/proof Implanted On Prior [facility] Admission?: Yes Date: 12/20/17 Results: 0 mm PPD to be Administered?: No - Smoking Cessation Smoking history: Never smoked Have you smoked in the past 12 months: No Aproximately how many cigarettes per day: 0 Cigars Per Day: 0 Hx Chewing Tobacco Use: No - Substance & Tx. History Hx Alcohol Use: Yes Hx Substance Use: Yes Substance Use Type: Alcohol, Cocaine - Substances abused Alcohol Substance route: Oral Frequency: 3-6 times per week Amount used: 1/2 pint mile Age of first use: 20 Date of last use: 02/23/19 Cocaine Substance route: Smoking Frequency: 1-2 times per week Amount used: $350 Age of first use: 20 Date of last use: 02/22/19 Family Disease History - Family Disease History Family Disease History: Other: Father (), Mother (), Brother ( NO CONTACT), Sister (NO CONTACT) Admission Physical Exam BHS - Vital Signs Vital Signs: Vital Signs - 24 hr 02/23/19 17:54 Temperature 98.7 F Pulse Rate 79 Respiratory 16 Rate Blood Pressure 132/87 - Physical General Appearance: Yes: No Apparent Distress HEENTM: Yes: Hearing grossly Normal, Normal ENT Inspection, Normocephalic, Normal Voice, JUDAH Respiratory: Yes: Chest Non-Tender, Lungs Clear Neck: Yes: No masses,lesions,Nodules, Supple Breast: Yes: Breast Exam Deferred Cardiology: Yes: Regular Rhythm, Regular Rate, S1, S2 Abdominal: Yes: Normal Bowel Sounds, Non Tender, Soft Genitourinary: Yes: Within Normal Limits Back: Yes: Normal Inspection, CVA Tenderness Musculoskeletal: Yes: full range of Motion, Gait Steady, Pelvis Stable Extremities: Yes: Normal Range of Motion, Tremors Neurological: Yes: creative specialist II-XII NML intact, Fully Oriented, Alert, Normal Mood/ Affect, Normal Response Integumentary: Yes: Clammy Lymphatic: Yes: Within Normal Limits - Diagnostic (1) Alcohol dependence with uncomplicated withdrawal Current Visit: Yes Status: Acute (2) Cocaine dependence Current Visit: Yes Status: Acute Qualifiers: Substance use status: uncomplicated Qualified Code(s): F14.20 - Cocaine dependence, uncomplicated (3) HIV (human immunodeficiency virus infection) Current Visit: Yes Status: Chronic Qualifiers: HIV symptom status: asymptomatic Cleared for Admission [facility] - Detox or Rehab [facility] Level of Care: Medically Managed Detox Regimen/Protocol: Librium Claeared for Rehab Admission: No Breathalyzer - Breathalyzer Breathalyzer: 0 Urine Drug Screen - Test Device Lot number: [id number] Expiration date: 12/11/20 - Control Is test valid?: Yes - Results Drug screen NEGATIVE: No Urine drug screen results: ORAL-Cocaine Inpatient Rehab Admission - Rehab Decision to Admit Inpatient rehab admission?: No
[2019-02-23] MEDS ORDERED: METHOCARBAMOL 500 MG TABLET PO PRN (19:41)
[2019-02-23] MEDS ORDERED: BISMUTH SUBSALICYLATE 524 MG/30 ML UD PO PRN (19:41)
[2019-02-23] MEDS ORDERED: ACETAMINOPHEN 325 MG TABLET (FP) PO PRN ×2 (19:41)
[2019-02-23] MEDS ORDERED: MAGNESIUM HYDROX 2400MG/30ML ORAL SUSPENSION 30 ML CUP PO PRN (19:41)
[2019-02-23] MEDS ORDERED: IBUPROFEN 400 MG TABLET (FP) PO PRN (19:41)
[2019-02-23] MEDS ORDERED: MAG HYDROX/AL HYDROX/SIMETH 30 ML UNIT-DOSE CUP PO PRN (19:41)
[2019-02-23] MEDS ORDERED: hydrOXYzine PAMOATE 25 MG CAPSULE (FP) PO PRN (19:41)
[2019-02-23] MEDS ORDERED: MELATONIN 5 MG TABLETS PO PRN (19:41)
[2019-02-23] MEDS ORDERED: MAGNESIUM CITRATE 300 ML BOTTLE PO PRN (19:41)
[2019-02-23] MEDS ORDERED: chlordiazePOXIDE HCL 10 MG CAPSULE PO PRN (19:41)
[2019-02-23] MEDS: chlordiazePOXIDE HCL 25 MG CAPSULE PO SCH (22:10)
[2019-02-23] MEDS: THIAMINE HCL 100 MG TABLET (FP) PO SCH (22:10)
[2019-02-24] MEDS: chlordiazePOXIDE HCL 25 MG CAPSULE PO SCH ×3 (05:21→22:19)
[2019-02-24] MEDS ORDERED: BIKTARVY PO SCH (10:00)
--- NOTE | 2019-02-24 10:05 | PN ---
S CIWA - CIWA Score Nausea/Vomitin-Mild Nausea/No Vomiting Muscle Tremors: 4-Moderate,w/Arms Extend Anxiety: 3 Agitation: 2 Paroxysmal Sweats: 1-Minimal Palms Moist Orientation: 1-Uncertain about Date Tacttile Disturbances: 1-Very Mild Itch/Numbness Auditory Disturbances: 0-None Visual Disturbances: 0-None Headache: 0-None Present CIWA-Ar Total Score: 13 BHS Progress Note (SOAP) Subjective: 59 years old male admitted on 02/23/19 for alcohol withdrawal sx medical history of hiv treated with biktarvy lat filled 02/19/19 report doing well with librium detox protocol Objective: 02/24/19 10:06 Vital Signs Temperature 99.4 F 02/24/19 09:24 Pulse Rate 86 02/24/19 09:24 Respiratory Rate 18 02/24/19 09:24 Blood Pressure 122/66 02/24/19 09:24 O2 Sat by Pulse Oximetry (%) 02/24/19 10:07 lab pending Assessment: 02/24/19 10:07 Vital Signs alcohol withdrawal sx Plan: continue alcohol detox
[2019-02-24 10:18] LABS: ALBUMIN 3.4 g/dl (3.4-5.0); BILIRUBIN,TOTAL 0.5 mg/dL (0.2-1); BLOOD UREA NITROGEN 11.6 mg/dL (7-18); CREATININE 1.1 mg/dL (0.55-1.3); TOT PROT 7.3 g/dl (6.4-8.2)
[2019-02-24] MEDS: PRENATAL VITAMINS W/ FOLIC ACID TABLET (FP) PO SCH (10:22)
[2019-02-24] MEDS: SULFAMETHOXAZOLE/TRIMETHOPRIM 800MG/160MG D.S. TABLET PO SCH (10:22)
[2019-02-24 10:30] LABS: HEMATOCRIT 37.3 % (35.4-49); HEMOGLOBIN 12.7 GM/dL (11.7-16.9); MCH 30.8 pg (25.7-33.7); MCHC 33.9 g/dl (32.0-35.9); MEAN CELL VOLUME 90.6 fl (80-96); MEAN PLT VOLUME 8.4 fl (7.5-11.1); RBC 4.11 M/mm3 (4.00-5.60); RDW 13.7 % (11.9-15.9); WHITE BLOOD COUNT 2.8 K/mm3 (4.0-10.0)
[2019-02-24 10:45] LABS: PLATELET COUNT 280 K/MM3 (134-434)
[2019-02-24] MEDS: THIAMINE HCL 100 MG TABLET (FP) PO SCH (22:19)
[2019-02-24] MEDS: MENTHOL/PHENOL 1 EACH UD MM PRN (23:59)
[2019-02-25] MEDS: chlordiazePOXIDE 5 MG CAPSULE PO SCH ×3 (05:17→22:21)
--- NOTE | 2019-02-25 09:43 | PN ---
S CIWA - CIWA Score Nausea/Vomitin-Mild Nausea/No Vomiting Muscle Tremors: 3 Anxiety: 3 Agitation: 3 Paroxysmal Sweats: 1-Minimal Palms Moist Orientation: 0-Oriented Tacttile Disturbances: 1-Very Mild Itch/Numbness Auditory Disturbances: 0-None Visual Disturbances: 0-None Headache: 0-None Present CIWA-Ar Total Score: 12 BHS Progress Note (SOAP) Subjective: feeling better today good appetites requests to been seen by a railroad crane operator for "more food" Objective: 02/25/19 09:40 Vital Signs Temperature 99.6 F 02/25/19 09:09 Pulse Rate 98 H 02/25/19 09:09 Respiratory Rate 18 02/25/19 09:09 Blood Pressure 130/87 02/25/19 09:09 O2 Sat by Pulse Oximetry (%) Laboratory Last Values WBC 2.8 K/mm3 (4.0-10.0) L 02/24/19 07:50 RBC 4.11 M/mm3 (4.00-5.60) 02/24/19 07:50 Hgb 12.7 GM/dL (11.7-16.9) 02/24/19 07:50 Hct 37.3 % (35.4-49) 02/24/19 07:50 MCV 90.6 fl (80-96) 02/24/19 07:50 MCH 30.8 pg (25.7-33.7) 02/24/19 07:50 MCHC 33.9 g/dl (32.0-35.9) 02/24/19 07:50 RDW 13.7 % (11.9-15.9) 02/24/19 07:50 Plt Count 280 K/MM3 (134-434) 02/24/19 07:50 MPV 8.4 fl (7.5-11.1) 02/24/19 07:50 Sodium 143 mmol/L (136-145) 02/24/19 07:50 Potassium 4.0 mmol/L (3.5-5.1) 02/24/19 07:50 Chloride 105 mmol/L (98-107) 02/24/19 07:50 Carbon Dioxide 31 mmol/L (21-32) 02/24/19 07:50 Anion Gap 7 MMOL/L (8-16) L 02/24/19 07:50 BUN 11.6 mg/dL (7-18) 02/24/19 07:50 Creatinine 1.1 mg/dL (0.55-1.3) 02/24/19 07:50 Est GFR (CKD-EPI)AfAm 85.91 02/24/19 07:50 Est GFR (CKD-EPI)NonAf 74.12 02/24/19 07:50 Random Glucose 87 mg/dL (74-106) 02/24/19 07:50 Calcium 9.0 mg/dL (8.5-10.1) 02/24/19 07:50 Total Bilirubin 0.5 mg/dL (0.2-1) 02/24/19 07:50 AST 39 U/L (15-37) H 02/24/19 07:50 ALT 38 U/L (13-61) 02/24/19 07:50 Alkaline Phosphatase 81 U/L (45-117) 02/24/19 07:50 Total Protein 7.3 g/dl (6.4-8.2) 02/24/19 07:50 Albumin 3.4 g/dl (3.4-5.0) 02/24/19 07:50 RPR Titer Nonreactive (NONREACTIVE) 02/24/19 07:50 lab noted long history of hiv with low wbc count patient agrees to bring in lab result to infectious disease specialist for follow up Assessment: 02/25/19 09:41 alcohol withdrawal sx HIV patient had not brought in his own ART medication due to none formulary that the patient will try to get his own to detox from home Plan: continue alcohol detox discuss adherence with ART
[2019-02-25] MEDS: SULFAMETHOXAZOLE/TRIMETHOPRIM 800MG/160MG D.S. TABLET PO SCH (10:12)
[2019-02-25] MEDS: PRENATAL VITAMINS W/ FOLIC ACID TABLET (FP) PO SCH (10:12)
[2019-02-25] MEDS: MENTHOL/PHENOL 1 EACH UD MM PRN ×2 (10:24→20:48)
[2019-02-25] MEDS: THIAMINE HCL 100 MG TABLET (FP) PO SCH (22:21)
[2019-02-26] MEDS ORDERED: chlordiazePOXIDE HCL 10 MG CAPSULE PO PRN
[2019-02-26] MEDS: chlordiazePOXIDE HCL 10 MG CAPSULE PO SCH ×3 (05:58→21:49)
[2019-02-26] MEDS: guaiFENesin 600 MG TABLET.ER (FP) PO SCH ×2 (10:27→21:44)
[2019-02-26] MEDS: SULFAMETHOXAZOLE/TRIMETHOPRIM 800MG/160MG D.S. TABLET PO SCH (10:28)
[2019-02-26] MEDS: PRENATAL VITAMINS W/ FOLIC ACID TABLET (FP) PO SCH (10:28)
[2019-02-26] MEDS: AMOXICILLIN 500 MG CAPSULE (FP) PO SCH ×2 (14:48→21:44)
--- NOTE | 2019-02-26 15:29 | PN ---
S CIWA - CIWA Score Nausea/Vomitin-Mild Nausea/No Vomiting Muscle Tremors: 2 Anxiety: 2 Agitation: 2 Paroxysmal Sweats: 1-Minimal Palms Moist Orientation: 0-Oriented Tacttile Disturbances: 0-None Auditory Disturbances: 0-None Visual Disturbances: 0-None Headache: 0-None Present CIWA-Ar Total Score: 8 BHS Progress Note (SOAP) Subjective: 59 years old male long history of hiv current coughing from dry cough to yellowish green productive coughing with low grade fever oral pharyngeal mild erythema, no swell no exudation denies pain on swallowing no lymph edema amoxicillin 500 mg po bid x 3 days recommend the patient follow up with infectious disease specialist for low wbc Objective: 02/26/19 15:31 Vital Signs Temperature 98 F 02/26/19 13:25 Pulse Rate 89 02/26/19 13:25 Respiratory Rate 18 02/26/19 13:25 Blood Pressure 133/77 02/26/19 13:25 O2 Sat by Pulse Oximetry (%) Laboratory Last Values WBC 2.8 K/mm3 (4.0-10.0) L 02/24/19 07:50 RBC 4.11 M/mm3 (4.00-5.60) 02/24/19 07:50 Hgb 12.7 GM/dL (11.7-16.9) 02/24/19 07:50 Hct 37.3 % (35.4-49) 02/24/19 07:50 MCV 90.6 fl (80-96) 02/24/19 07:50 MCH 30.8 pg (25.7-33.7) 02/24/19 07:50 MCHC 33.9 g/dl (32.0-35.9) 02/24/19 07:50 RDW 13.7 % (11.9-15.9) 02/24/19 07:50 Plt Count 280 K/MM3 (134-434) 02/24/19 07:50 MPV 8.4 fl (7.5-11.1) 02/24/19 07:50 Sodium 143 mmol/L (136-145) 02/24/19 07:50 Potassium 4.0 mmol/L (3.5-5.1) 02/24/19 07:50 Chloride 105 mmol/L (98-107) 02/24/19 07:50 Carbon Dioxide 31 mmol/L (21-32) 02/24/19 07:50 Anion Gap 7 MMOL/L (8-16) L 02/24/19 07:50 BUN 11.6 mg/dL (7-18) 02/24/19 07:50 Creatinine 1.1 mg/dL (0.55-1.3) 02/24/19 07:50 Est GFR (CKD-EPI)AfAm 85.91 02/24/19 07:50 Est GFR (CKD-EPI)NonAf 74.12 02/24/19 07:50 Random Glucose 87 mg/dL (74-106) 02/24/19 07:50 Calcium 9.0 mg/dL (8.5-10.1) 02/24/19 07:50 Total Bilirubin 0.5 mg/dL (0.2-1) 02/24/19 07:50 AST 39 U/L (15-37) H 02/24/19 07:50 ALT 38 U/L (13-61) 02/24/19 07:50 Alkaline Phosphatase 81 U/L (45-117) 02/24/19 07:50 Total Protein 7.3 g/dl (6.4-8.2) 02/24/19 07:50 Albumin 3.4 g/dl (3.4-5.0) 02/24/19 07:50 RPR Titer Nonreactive (NONREACTIVE) 02/24/19 07:50 lab noted Assessment: 02/26/19 15:32 alcohol withdrawal sx Plan: continue alcohol detox
[2019-02-26] MEDS: MENTHOL/PHENOL 1 EACH UD MM PRN (18:20)
[2019-02-26] MEDS: THIAMINE HCL 100 MG TABLET (FP) PO SCH (21:44)
[2019-02-27] MEDS ORDERED: chlordiazePOXIDE HCL 10 MG CAPSULE PO ONE (05:00)
[2019-02-27 06:41] VITALS: TEMP 98.4
[2019-02-27] MEDS: MENTHOL/PHENOL 1 EACH UD MM PRN (07:28)
[2019-02-27 09:20] VITALS: BP 125/84; PULSE 97
[2019-02-27] MEDS: PRENATAL VITAMINS W/ FOLIC ACID TABLET (FP) PO SCH (10:03)
[2019-02-27] MEDS: SULFAMETHOXAZOLE/TRIMETHOPRIM 800MG/160MG D.S. TABLET PO SCH (10:04)
[2019-02-27] MEDS: guaiFENesin 600 MG TABLET.ER (FP) PO SCH (10:04)
[2019-02-27] MEDS: AMOXICILLIN 500 MG CAPSULE (FP) PO SCH (10:05)
--- NOTE | 2019-02-27 11:09 | DS ---
[facility] Detox Discharge Summary Admission Date: 02/23/19 Discharge Date: 02/27/19 - History Present History: Alcohol Dependence Additional Comments: 59 YEARS OLD MALE ADMITTED ON 02/23/19 NFOR ALCOHOL WITHDRAWAL SX PATIENT WAS DOING WELL WITHOUT COMPLICATION THROUGH OUT THE DETOX STAY TAKING AMOXICILLIN FOR SORE THROAT TOLERATE WELL WILL FOLLOW UP WITH INFECTIOUS DISEASE SPECIALIST ALERT ORIENTED X 3 NO ACUTE DISTRESS AT THE TIME OF DISCHARGE PATIENT PREFERS TO GO TO [facility] Pertinent Past History: HIV - Physical Exam Results Vital Signs: Vital Signs Temperature 98.4 F 02/27/19 09:20 Pulse Rate 97 H 02/27/19 09:20 Respiratory Rate 20 02/27/19 09:20 Blood Pressure 125/84 02/27/19 09:20 O2 Sat by Pulse Oximetry (%) Pertinent Admission Physical Exam Findings: ALCOHOL WITHDRAWAL SX Laboratory Last Values WBC 2.8 K/mm3 (4.0-10.0) L 02/24/19 07:50 RBC 4.11 M/mm3 (4.00-5.60) 02/24/19 07:50 Hgb 12.7 GM/dL (11.7-16.9) 02/24/19 07:50 Hct 37.3 % (35.4-49) 02/24/19 07:50 MCV 90.6 fl (80-96) 02/24/19 07:50 MCH 30.8 pg (25.7-33.7) 02/24/19 07:50 MCHC 33.9 g/dl (32.0-35.9) 02/24/19 07:50 RDW 13.7 % (11.9-15.9) 02/24/19 07:50 Plt Count 280 K/MM3 (134-434) 02/24/19 07:50 MPV 8.4 fl (7.5-11.1) 02/24/19 07:50 Sodium 143 mmol/L (136-145) 02/24/19 07:50 Potassium 4.0 mmol/L (3.5-5.1) 02/24/19 07:50 Chloride 105 mmol/L (98-107) 02/24/19 07:50 Carbon Dioxide 31 mmol/L (21-32) 02/24/19 07:50 Anion Gap 7 MMOL/L (8-16) L 02/24/19 07:50 BUN 11.6 mg/dL (7-18) 02/24/19 07:50 Creatinine 1.1 mg/dL (0.55-1.3) 02/24/19 07:50 Est GFR (CKD-EPI)AfAm 85.91 02/24/19 07:50 Est GFR (CKD-EPI)NonAf 74.12 02/24/19 07:50 Random Glucose 87 mg/dL (74-106) 02/24/19 07:50 Calcium 9.0 mg/dL (8.5-10.1) 02/24/19 07:50 Total Bilirubin 0.5 mg/dL (0.2-1) 02/24/19 07:50 AST 39 U/L (15-37) H 02/24/19 07:50 ALT 38 U/L (13-61) 02/24/19 07:50 Alkaline Phosphatase 81 U/L (45-117) 02/24/19 07:50 Total Protein 7.3 g/dl (6.4-8.2) 02/24/19 07:50 Albumin 3.4 g/dl (3.4-5.0) 02/24/19 07:50 RPR Titer Nonreactive (NONREACTIVE) 02/24/19 07:50 LAB NOTED - Treatment Hospital Course: Detox Protocol Followed, Detoxed Safely, Responded well, Discharged Condition Good, Rehab Referral Accepted Patient has Accepted a Rehab Referral to: [facility] - Medication Discharge Medications: Ambulatory Orders Biktarvy 50-200-25 mg Tablet 1 tab PO DAILY 10/18/18 Amoxicillin - [Amoxicillin 500mg Capsule -] 500 mg PO BID #7 capsule 02/26/19 Sulfamethoxazole/Trimethoprim [Bactrim DS -] 1 each PO DAILY #30 tablet - Diagnosis (1) Alcohol dependence with uncomplicated withdrawal Current Visit: Yes Status: Acute (2) HIV (human immunodeficiency virus infection) Current Visit: Yes Status: Chronic Qualifiers: HIV symptom status: asymptomatic (3) Laryngitis Current Visit: Yes Status: Acute - AMA Did Patient Leave Against Medical Advice: No
== END 2019-02-27 10:24 | disposition home or self-care (01) | DRG 897 ==
LOC: YASAS 14:41 → Y3N 20:08
PROVIDERS: ADMIT Surgery; ATTEND Surgery
PROC: HZ2ZZZZ Detoxification Services for Substance Abuse Treatment (ICD-10-PCS; principal; 2019-02-23)
DX: F10.230 Alcohol dependence with withdrawal, uncomplicated (principal); B20 Human immunodeficiency virus [HIV] disease; J04.0 Acute laryngitis; Z91.013 Allergy to seafood
CPT/HCPCS: 36415; 80053; 85027; 86593

== ENCOUNTER 2019-05-13 15:13 | Inpatient (IN) | payer OTHER ==
[2019-05-13 16:56] VITALS: BMI 27.2
--- NOTE | 2019-05-13 18:42 | HP ---
CIWA Score Nausea/Vomitin Muscle Tremors: 3 Anxiety: 2 Agitation: 2 Paroxysmal Sweats: 1-Minimal Palms Moist Orientation: 0-Oriented Tacttile Disturbances: 0-None Auditory Disturbances: 0-None Visual Disturbances: 0-None Headache: 2-Mild CIWA-Ar Total Score: 12 - Admission Criteria OASAS Guidelines: Admission for Medically Managed Detox: Requires at least one of the followin. CIWA greater than 12 2. Seizures within the past 24 hours 3. Delirium tremens within the past 24 hours 4. Hallucinations within the past 24 hours 5. Acute intervention needed for co occurring medical disorder 6. Acute intervention needed for co occurring psychiatric disorder 7. Severe withdrawal that cannot be handled at a lower level of care (continued vomiting, continued diarrhea, abnormal vital signs) requiring intravenous medication and/or fluids 8. Patient presents the following: CIWA greater than 12 Admission Criteria Met: Admission criteria met Admitting History and Physical - Smoking History Smoking history: Never smoked Have you smoked in the past 12 months: No Aproximately how many cigarettes per day: 0 - Alcohol/Substance Use Hx Alcohol Use: Yes Admission [facility] Chief Complaint: alcohol detox Allergies/Adverse Reactions: Allergies Allergy/AdvReac Type Severity Reaction Status Date / Time Fish Containing Products Allergy Severe Hives Verified 05/13/19 16:43 No Known Drug Allergies Allergy Verified 05/13/19 16:43 tomatoe sauce Allergy Mild Hives Uncoded 05/13/19 16:43 History of Present Illness: 59 yo with HIV, low CD4- does not remember, here for alcohol detox. Says he was caught with alcohol in his apartment and was asked to come for detox/rehab. Says he will go to [facility] rehab after he completes detox here. Was last here in detox 02/2019. PCP- in [facility]- started symtuza for HIV last week, on Bactrim and Zithromax once a week alcohol- drinks a whole bottle, says he had his last drink this morning. crack cocaine- occasional use, $500/ this past weekend THC- occ DUR- no meds - Ebola screening Have you traveled outside of the country in the last 21 days: No Have you had contact with anyone from an Ebola affected area: No - Review of Systems Constitutional: No Symptoms Reported EENT: reports: No Symptoms Reported Respiratory: reports: No Symptoms reported Cardiac: reports: No Symptoms Reported GI: reports: No Symptoms Reported : reports: No Symptoms Reported Musculoskeletal: reports: No Symptoms Reported Integumentary: reports: No Symptoms Reported Neuro: reports: No Symptoms reported Endocrine: reports: No Symptoms Reported Hematology: reports: No Symptoms Reported Psychiatric: reports: No Sypmtoms Reported Patient History - Patient Medical History Hx Anemia: No Hx Asthma: No Hx Chronic Obstructive Pulmonary Disease (COPD): No Hx Cancer: No Hx Cardiac Disorders: No Hx Congestive Heart Failure: No Hx Hypertension: No Hx Hypercholesterolemia: No Hx Pacemaker: No HX Cerebrovascular Accident: No Hx Seizures: No Hx Dementia: No Hx Diabetes: No Hx Gastrointestinal Disorders: No Hx Liver Disease: No Hx Genitourinary Disorders: No Hx Sexually Transmitted Disorders: No Hx Renal Disease (ESRD): No Hx Thyroid Disease: No Hx Human Immunodeficiency Virus (HIV): Yes (since 1999 ) Hx Hepatitis C: No Hx Depression: No Hx Suicide Attempt: No Hx Bipolar Disorder: No Hx Schizophrenia: No - Patient Surgical History Past Surgical History: No Hx Neurologic Surgery: No Hx Cataract Extraction: No Hx Cardiac Surgery: No Hx Lung Surgery: No Hx Breast Surgery: No Hx Breast Biopsy: No Hx Abdominal Surgery: No Hx Appendectomy: No Hx Cholecystectomy: No Hx Genitourinary Surgery: No Hx Section: No Hx Orthopedic Surgery: No Anesthesia Reaction: No - PPD History Date: 12/20/17 Results: 0 mm - Smoking Cessation Smoking history: Never smoked Have you smoked in the past 12 months: No Aproximately how many cigarettes per day: 0 Cigars Per Day: 0 Hx Chewing Tobacco Use: No Initiated information on smoking cessation: No - Substances abused Alcohol Substance route: Oral Frequency: 3-6 times per week Amount used: 1/2 pint mile Age of first use: 20 Date of last use: 05/13/19 Cocaine Substance route: Smoking Frequency: 1-2 times per week Amount used: $350 Age of first use: 20 Date of last use: 05/12/19 Admission Physical Exam BHS - Vital Signs Vital Signs: Vital Signs - 24 hr 05/13/19 16:45 Temperature 98.6 F Pulse Rate 73 Respiratory 18 Rate Blood Pressure 142/95 - Physical General Appearance: Yes: Within Normal Limits, Nourished HEENTM: Yes: Within Normal Limits, Hearing grossly Normal Respiratory: Yes: Within Normal Limits, Lungs Clear Neck: Yes: Within Normal Limits, No masses,lesions,Nodules Cardiology: Yes: Within Normal Limits, Regular Rhythm, Regular Rate Abdominal: Yes: Within Normal Limits, Normal Bowel Sounds, Non Tender Musculoskeletal: Yes: Within Normal Limits, full range of Motion, Gait Steady Extremities: Yes: Within Normal Limits, Normal Capillary Refill Neurological: Yes: Within Normal Limits, cook ship II-XII NML intact Integumentary: Yes: Within Normal Limits Lymphatic: Yes: Within Normal Limits - Diagnostic (1) Alcohol dependence with uncomplicated withdrawal Current Visit: No Status: Acute (2) Cannabis dependence Current Visit: No Status: Acute (3) Cocaine dependence Current Visit: No Status: Acute Qualifiers: Substance use status: uncomplicated Qualified Code(s): F14.20 - Cocaine dependence, uncomplicated (4) HIV (human immunodeficiency virus infection) Current Visit: No Status: Chronic Qualifiers: HIV symptom status: asymptomatic Qualified Code(s): Z21 - Asymptomatic human immunodeficiency virus [HIV] infection status Breathalyzer - Breathalyzer Breathalyzer: 0.014 Urine Drug Screen - Test Device Lot number: [id number] Expiration date: 01/11/21 - Control Is test valid?: Yes - Results Drug screen NEGATIVE: Yes Urine drug screen results: THC-Marijuana, ORAL-Cocaine Inpatient Rehab Admission - Rehab Decision to Admit Inpatient rehab admission?: No
[2019-05-13] MEDS ORDERED: MAG HYDROX/AL HYDROX/SIMETH 30 ML UNIT-DOSE CUP PO PRN (18:49)
[2019-05-13] MEDS ORDERED: MAGNESIUM CITRATE 300 ML BOTTLE PO PRN (18:49)
[2019-05-13] MEDS ORDERED: hydrOXYzine PAMOATE 25 MG CAPSULE (FP) PO PRN (18:49)
[2019-05-13] MEDS ORDERED: chlordiazePOXIDE HCL 10 MG CAPSULE PO PRN ×2 (18:49→18:53)
[2019-05-13] MEDS ORDERED: chlordiazePOXIDE HCL 25 MG CAPSULE PO ONE ×2 (18:49→18:53)
[2019-05-13] MEDS ORDERED: METHOCARBAMOL 500 MG TABLET PO PRN (18:49)
[2019-05-13] MEDS ORDERED: MENTHOL/PHENOL 1 EACH UD MM PRN (18:49)
[2019-05-13] MEDS ORDERED: MAGNESIUM HYDROX 2400MG/30ML ORAL SUSPENSION 30 ML CUP PO PRN (18:49)
[2019-05-13] MEDS ORDERED: ACETAMINOPHEN 325 MG TABLET (FP) PO PRN ×2 (18:49)
[2019-05-13] MEDS ORDERED: IBUPROFEN 400 MG TABLET (FP) PO PRN (18:49)
[2019-05-13] MEDS ORDERED: BISMUTH SUBSALICYLATE 524 MG/30 ML UD PO PRN (18:49)
[2019-05-13] MEDS ORDERED: chlordiazePOXIDE HCL 25 MG CAPSULE PO SCH (21:00)
[2019-05-13] MEDS: MELATONIN 5 MG TABLETS PO PRN (22:20)
[2019-05-13] MEDS: THIAMINE HCL 100 MG TABLET (FP) PO SCH (22:20)
[2019-05-13] MEDS: chlordiazePOXIDE HCL 25 MG CAPSULE PO SCH (22:20)
[2019-05-14] MEDS: chlordiazePOXIDE HCL 25 MG CAPSULE PO SCH ×3 (06:27→21:34)
[2019-05-14] MEDS ORDERED: DARUNAVIR/COB/EMTRI/TENOF (SYMTUZA) TABLET (NF) PO SCH ×2 (08:00→10:00)
--- NOTE | 2019-05-14 10:05 | CONSULT ---
[facility] Psychiatric Consult - Data Date of interview: 05/14/19 Admission source: [facility] Identifying data: Cardiograph Operator approached patient for psychiatric consultation. Patient refused. Stated " I did not ask to speak to you. I do not have to see you." Psychiatric consultation refused.
[2019-05-14] MEDS: DARUNAVIR/COB/EMTRI/TENOF (SYMTUZA) TABLET (NF) PO SCH (11:20)
[2019-05-14] MEDS: PRENATAL VITAMINS W/ FOLIC ACID TABLET (FP) PO SCH (11:20)
[2019-05-14] MEDS: SULFAMETHOXAZOLE/TRIMETHOPRIM 800MG/160MG D.S. TABLET PO SCH (11:22)
[2019-05-14 11:58] LABS: HEMATOCRIT 34.3 % (35.4-49); HEMOGLOBIN 11.9 GM/dL (11.7-16.9); MCH 31.2 pg (25.7-33.7); MCHC 34.6 g/dl (32.0-35.9); MEAN CELL VOLUME 90.2 fl (80-96); PLATELET COUNT 219 K/MM3 (134-434); RDW 12.8 % (11.9-15.9); WHITE BLOOD COUNT 2.4 K/mm3 (4.0-10.0)
[2019-05-14 13:00] LABS: BILIRUBIN,TOTAL 0.5 mg/dL (0.2-1); CALCIUM 8.6 mg/dL (8.5-10.1); TOT PROT 6.4 g/dl (6.4-8.2)
--- NOTE | 2019-05-14 16:31 | PN ---
S CIWA - CIWA Score Nausea/Vomitin-No Nausea/No Vomiting Muscle Tremors: 2 Anxiety: 3 Agitation: 0-Normal Activity Paroxysmal Sweats: No Perspiration Orientation: 2-Disoriented Date<2 days Tacttile Disturbances: 0-None Auditory Disturbances: 0-None Visual Disturbances: 2-Mild Sensitivity Headache: 3-Moderate CIWA-Ar Total Score: 12 BHS Progress Note (SOAP) Subjective: Fatigue, H/A, Anxious. Objective: PATIENT A & O X 2 (UNCERTAIN ABOUT CURRENT DAY / DATE). IN NO ACUTE DISTRESS. 05/14/19 16:29 Vital Signs Temperature 96.7 F L 05/14/19 13:24 Pulse Rate 68 05/14/19 13:24 Respiratory Rate 18 05/14/19 13:24 Blood Pressure 146/86 05/14/19 13:24 O2 Sat by Pulse Oximetry (%) Laboratory Tests 05/14/19 05/14/19 08:45 08:45 WBC 2.4 L RBC 3.80 L Hgb 11.9 Hct 34.3 L MCV 90.2 MCH 31.2 MCHC 34.6 RDW 12.8 Plt Count 219 D MPV 9.0 Sodium 144 Potassium 4.0 Chloride 109 H Carbon Dioxide 28 Anion Gap 7 L BUN 13.0 Creatinine 1.0 Est GFR (CKD-EPI)AfAm 96.40 Est GFR (CKD-EPI)NonAf 83.18 Random Glucose 96 Calcium 8.6 Total Bilirubin 0.5 AST 14 L ALT 19 Alkaline Phosphatase 70 Total Protein 6.4 Albumin 3.0 L LABS NOTED. Assessment: 05/14/19 16:30 WITHDRAWAL SYMPTOMS. LEUKOPENIA. ANEMIA. Plan: CONTINUE DETOX.
[2019-05-14] MEDS: THIAMINE HCL 100 MG TABLET (FP) PO SCH (21:34)
[2019-05-14] MEDS: MELATONIN 5 MG TABLETS PO PRN (21:34)
[2019-05-15] MEDS ORDERED: chlordiazePOXIDE 5 MG CAPSULE PO SCH (05:00)
[2019-05-15] MEDS: chlordiazePOXIDE 5 MG CAPSULE PO SCH ×3 (05:22→21:58)
[2019-05-15] MEDS: DARUNAVIR/COB/EMTRI/TENOF (SYMTUZA) TABLET (NF) PO SCH (07:48)
[2019-05-15] MEDS: SULFAMETHOXAZOLE/TRIMETHOPRIM 800MG/160MG D.S. TABLET PO SCH (10:30)
[2019-05-15] MEDS: PRENATAL VITAMINS W/ FOLIC ACID TABLET (FP) PO SCH (10:30)
--- NOTE | 2019-05-15 14:25 | PN ---
S CIWA - CIWA Score Nausea/Vomitin-No Nausea/No Vomiting Muscle Tremors: 1-None Visible, but [place] Anxiety: 2 Agitation: 2 Paroxysmal Sweats: No Perspiration Orientation: 0-Oriented Tacttile Disturbances: 1-Very Mild Itch/Numbness Auditory Disturbances: 0-None Visual Disturbances: 0-None Headache: 2-Mild CIWA-Ar Total Score: 8 BHS Progress Note (SOAP) Subjective: alert,irritable,anxious,interrupted sleep Objective: 05/15/19 14:24 Vital Signs Temperature 97.5 F L 05/15/19 13:14 Pulse Rate 89 05/15/19 13:14 Respiratory Rate 18 05/15/19 13:14 Blood Pressure 129/83 05/15/19 13:14 O2 Sat by Pulse Oximetry (%) 05/15/19 14:24 Laboratory Last Values WBC 2.4 K/mm3 (4.0-10.0) L 05/14/19 08:45 RBC 3.80 M/mm3 (4.00-5.60) L 05/14/19 08:45 Hgb 11.9 GM/dL (11.7-16.9) 05/14/19 08:45 Hct 34.3 % (35.4-49) L 05/14/19 08:45 MCV 90.2 fl (80-96) 05/14/19 08:45 MCH 31.2 pg (25.7-33.7) 05/14/19 08:45 MCHC 34.6 g/dl (32.0-35.9) 05/14/19 08:45 RDW 12.8 % (11.9-15.9) 05/14/19 08:45 Plt Count 219 K/MM3 (134-434) D 05/14/19 08:45 MPV 9.0 fl (7.5-11.1) 05/14/19 08:45 Sodium 144 mmol/L (136-145) 05/14/19 08:45 Potassium 4.0 mmol/L (3.5-5.1) 05/14/19 08:45 Chloride 109 mmol/L (98-107) H 05/14/19 08:45 Carbon Dioxide 28 mmol/L (21-32) 05/14/19 08:45 Anion Gap 7 MMOL/L (8-16) L 05/14/19 08:45 BUN 13.0 mg/dL (7-18) 05/14/19 08:45 Creatinine 1.0 mg/dL (0.55-1.3) 05/14/19 08:45 Est GFR (CKD-EPI)AfAm 96.40 05/14/19 08:45 Est GFR (CKD-EPI)NonAf 83.18 05/14/19 08:45 Random Glucose 96 mg/dL (74-106) 05/14/19 08:45 Calcium 8.6 mg/dL (8.5-10.1) 05/14/19 08:45 Total Bilirubin 0.5 mg/dL (0.2-1) 05/14/19 08:45 AST 14 U/L (15-37) L 05/14/19 08:45 ALT 19 U/L (13-61) 05/14/19 08:45 Alkaline Phosphatase 70 U/L (45-117) 05/14/19 08:45 Total Protein 6.4 g/dl (6.4-8.2) 05/14/19 08:45 Albumin 3.0 g/dl (3.4-5.0) L 05/14/19 08:45 Assessment: 05/15/19 14:24 withdrawal symptom Plan: continue detox librium regimen wbc 2,400,probably due to hiv
[2019-05-15] MEDS: THIAMINE HCL 100 MG TABLET (FP) PO SCH (21:58)
[2019-05-15] MEDS: MELATONIN 5 MG TABLETS PO PRN (21:59)
[2019-05-16] MEDS ORDERED: chlordiazePOXIDE HCL 10 MG CAPSULE PO PRN ×2
[2019-05-16] MEDS ORDERED: chlordiazePOXIDE HCL 10 MG CAPSULE PO SCH (05:00)
[2019-05-16] MEDS: chlordiazePOXIDE HCL 10 MG CAPSULE PO SCH ×3 (05:56→22:15)
[2019-05-16] MEDS: DARUNAVIR/COB/EMTRI/TENOF (SYMTUZA) TABLET (NF) PO SCH (07:47)
[2019-05-16] MEDS: PRENATAL VITAMINS W/ FOLIC ACID TABLET (FP) PO SCH (10:32)
[2019-05-16] MEDS: SULFAMETHOXAZOLE/TRIMETHOPRIM 800MG/160MG D.S. TABLET PO SCH (10:32)
[2019-05-16] MEDS ORDERED: COLLOIDAL OATMEAL 1 BAR EACH TP PRN (12:19)
[2019-05-16] MEDS: CLOTRIMAZOLE 1% CREAM 15 GM TUBE TP SCH ×2 (13:54→22:16)
--- NOTE | 2019-05-16 16:45 | PN ---
S CIWA - CIWA Score Nausea/Vomitin-No Nausea/No Vomiting Muscle Tremors: 2 Anxiety: 2 Agitation: 3 Paroxysmal Sweats: No Perspiration Orientation: 0-Oriented Tacttile Disturbances: 0-None Auditory Disturbances: 0-None Visual Disturbances: 0-None Headache: 0-None Present CIWA-Ar Total Score: 7 BHS Progress Note (SOAP) Subjective: Tremors, Anxious. Objective: PATIENT A & O X 3, OBSERVED AMBULATING ON DETOX UNIT UNASSISTED. IN NO ACUTE DISTRESS. 05/16/19 16:41 Vital Signs Temperature 98.1 F 05/16/19 13:11 Pulse Rate 77 05/16/19 13:11 Respiratory Rate 18 05/16/19 13:11 Blood Pressure 131/85 05/16/19 13:11 O2 Sat by Pulse Oximetry (%) Laboratory Tests 05/14/19 05/14/19 08:45 08:45 WBC 2.4 L RBC 3.80 L Hgb 11.9 Hct 34.3 L MCV 90.2 MCH 31.2 MCHC 34.6 RDW 12.8 Plt Count 219 D MPV 9.0 Sodium 144 Potassium 4.0 Chloride 109 H Carbon Dioxide 28 Anion Gap 7 L BUN 13.0 Creatinine 1.0 Est GFR (CKD-EPI)AfAm 96.40 Est GFR (CKD-EPI)NonAf 83.18 Random Glucose 96 Calcium 8.6 Total Bilirubin 0.5 AST 14 L ALT 19 Alkaline Phosphatase 70 Total Protein 6.4 Albumin 3.0 L LABS NOTED. Assessment: 05/16/19 16:42 WITHDRAWAL SYMPTOMS. LEUKOPENIA. ANEMIA. Plan: CONTINUE DETOX. PATIENT IS CURRENTLY RECEIVING DAILY MVI CONTAINING B VITAMINS AND IRON WHILE ADMITTED FOR DETOX. PATIENT SCHEDULED FOR DISCHARGE FROM DETOX UNIT TOMORROW.
[2019-05-16] MEDS: THIAMINE HCL 100 MG TABLET (FP) PO SCH (22:15)
[2019-05-17] MEDS ORDERED: chlordiazePOXIDE HCL 10 MG CAPSULE PO ONE ×2 (05:00)
[2019-05-17 07:25] VITALS: BP 123/84; PULSE 66; TEMP 97.8
[2019-05-17] MEDS: DARUNAVIR/COB/EMTRI/TENOF (SYMTUZA) TABLET (NF) PO SCH (07:48)
--- NOTE | 2019-05-17 18:38 | DS ---
[facility] Detox Discharge Summary Admission Date: 05/13/19 Discharge Date: 05/17/19 - History Present History: Alcohol Dependence, Cannabis Dependence, Cocaine Dependence Additional Comments: PATIENT GOING TO THE [facility] FOR AFTERCARE. PATIENT WAS DISCHARGED FROM DETOX UNIT IN STABLE MEDICAL CONDITION. Pertinent Past History: H.I.V. - Physical Exam Results Vital Signs: Vital Signs Temperature 97.8 F 05/17/19 06:00 Pulse Rate 66 05/17/19 06:00 Respiratory Rate 18 05/17/19 06:00 Blood Pressure 123/84 05/17/19 06:00 O2 Sat by Pulse Oximetry (%) Pertinent Admission Physical Exam Findings: WITHDRAWAL SYMPTOMS. Laboratory Tests 05/14/19 05/14/19 08:45 08:45 WBC 2.4 L RBC 3.80 L Hgb 11.9 Hct 34.3 L MCV 90.2 MCH 31.2 MCHC 34.6 RDW 12.8 Plt Count 219 D MPV 9.0 Sodium 144 Potassium 4.0 Chloride 109 H Carbon Dioxide 28 Anion Gap 7 L BUN 13.0 Creatinine 1.0 Est GFR (CKD-EPI)AfAm 96.40 Est GFR (CKD-EPI)NonAf 83.18 Random Glucose 96 Calcium 8.6 Total Bilirubin 0.5 AST 14 L ALT 19 Alkaline Phosphatase 70 Total Protein 6.4 Albumin 3.0 L LABS NOTED. - Treatment Hospital Course: Detox Protocol Followed, Detoxed Safely, Responded well, Discharged Condition Good Patient has Accepted a Rehab Referral to: PATIENT GOING TO THE [facility] LONG[facility]TER[facility]. - Medication Discharge Medications: Ambulatory Orders Sulfamethoxazole/Trimethoprim [Bactrim DS -] 1 each PO DAILY #30 tablet Darunavir/Cob/Emtri/Tenof Alaf [Symtuza [id number] mg Tab] 1 each PO - Diagnosis (1) Alcohol dependence with uncomplicated withdrawal Status: Acute (2) Cannabis dependence Status: Acute (3) Cocaine dependence Status: Acute Qualifiers: Substance use status: uncomplicated Qualified Code(s): F14.20 - Cocaine dependence, uncomplicated (4) HIV (human immunodeficiency virus infection) Status: Chronic Qualifiers: HIV symptom status: asymptomatic Qualified Code(s): Z21 - Asymptomatic human immunodeficiency virus [HIV] infection status - AMA Did Patient Leave Against Medical Advice: No BHS CIWA - CIWA Score Nausea/Vomitin-No Nausea/No Vomiting Muscle Tremors: None Anxiety: 3 Agitation: 0-Normal Activity Paroxysmal Sweats: No Perspiration Orientation: 0-Oriented Tacttile Disturbances: 0-None Auditory Disturbances: 0-None Visual Disturbances: 0-None Headache: 0-None Present CIWA-Ar Total Score: 3
== END 2019-05-17 08:43 | disposition home or self-care (01) | DRG 897 ==
LOC: YASAS 15:13 → Y3N 19:12
PROVIDERS: ADMIT Surgery; ATTEND Surgery
PROC: HZ2ZZZZ Detoxification Services for Substance Abuse Treatment (ICD-10-PCS; principal; 2019-05-13)
DX: F10.230 Alcohol dependence with withdrawal, uncomplicated (principal); F14.20 Cocaine dependence, uncomplicated; F12.20 Cannabis dependence, uncomplicated; Z21 Asymptomatic human immunodeficiency virus [HIV] infection status; D64.9 Anemia, unspecified; D72.819 Decreased white blood cell count, unspecified
CPT/HCPCS: 36415; 80053; 85027